=== PATIENT | female | born 1980 | race Caucasian/White ===

== ENCOUNTER → 2016-10-03 | Outpatient (CLI) | payer BC ==
[2016-10-03 08:47] LABS: Blood Urea Nitrogen 11 mg/dL (7-17); Non-African American GFR(MDRD) >60 (>60 ml/min/1.73 sqM)
--- NOTE | 2016-10-03 10:30 | CT ---
EXAMINATION TYPE: CT ChestAbdPelvis w con DATE OF EXAM: 10/03/2016 9:21 AM COMPARISON: NONE HISTORY: Staging of recent Cervical CA CT DLP: 1919.1 mGycm Automated exposure control for dose reduction was used. CONTRAST: CT scan of the chest, abdomen and pelvis is performed with Oral Contrast and with IV Contrast, patien t injected with 100 mL of Omnipaque 300. FINDINGS: LUNGS: The lungs are grossly clear, there is no concerning parenchymal mass or nodule identified. T here is no pleural effusion or pneumothorax seen. The tracheobronchial tree is patent. MEDIASTINUM: There are no greater than 1 cm hilar or mediastinal lymph nodes. No pericardial effusi on is seen. AORTA: No significant abnormality is seen. OTHER: No additional significant abnormality is seen. LIVER/GB: There is a large calcified gallstone within the gallbladder, smaller gallstone also present which is calcified, the liver shows low attenuation suggestive of fatty infiltration and is enlarged . There is no evident liver mass. PANCREAS: No significant abnormality is seen. SPLEEN: The spleen is enlarged measuring 14.7 cm. ADRENALS: No significant abnormality is seen. KIDNEYS: Small cortical cyst towards the upper pole measures only approximately 8 mm. No hydronephros is bilaterally, no ureteral calcification. REPRODUCTIVE ORGANS: Left ovarian cyst is suspected measuring 2.4 cm. BOWEL: No significant abnormality is seen. Appendix is normal. FREE AIR: No Free Air visible. ASCITES: None seen. RETROPERITONEAL ADENOPATHY: No retroperitoneal adenopathy is seen. LYMPH NODES: No greater than 1 cm abdominal or pelvic lymph nodes are appreciated. URINARY BLADDER: No significant abnormality is seen. PELVIC ADENOPATHY: None visualized. OSSEOUS STRUCTURES: Degenerative disc changes present at the lumbosacral spine junction. There is fa cet arthropathy. IMPRESSION: Left ovarian cystic lesion, follow-up as indicated. Fatty infiltration of liver, hepatome smita. Cholelithiasis.
== END | disposition home or self-care (01) ==
LOC: RADCTMAIN 07:38
PROVIDERS: ATTEND Obstetrics & Gynecology
DX: C76.0 Malignant neoplasm of head, face and neck (principal); K80.20 Calculus of gallbladder without cholecystitis without obstruction; N83.202 Unspecified ovarian cyst, left side; K76.0 Fatty (change of) liver, not elsewhere classified; R16.0 Hepatomegaly, not elsewhere classified
CPT/HCPCS: 82565; 84520; 71260; 74177; 36415; Q9967

== ENCOUNTER 2016-11-24 17:52 | Emergency (ER) | payer BC ==
[2016-11-24] MEDS ORDERED: SODIUM CHLORIDE 0.9% 1,000 ML IV ONE (19:14)
[2016-11-24] MEDS ORDERED: ONDANSETRON 4 MG/2 ML VIAL IVP STA (19:14)
[2016-11-24] MEDS ORDERED: KETOROLAC 30 MG/ML 1 ML VIAL IVP STA (19:14)
[2016-11-24 19:44] LABS: Basophils # (A) 0.1 k/uL (0-0.2); Basophils % (A) 1 %; CH 29.6; CHCM 34.6; Eosinophils # (A) 0.2 k/uL (0-0.7); Eosinophils % (A) 2 %; HCT 37.7 % (34.0-46.0); HDW 3.73; Luc % (Auto) 2; Lymphocytes # (A) 2.4 k/uL (1.0-4.8); Lymphocytes % (A) 26 %; MCH 29.7 pg (25.0-35.0); MCHC 34.4 g/dL (31.0-37.0); Mean Platelet Volume 7.1; Monocytes # (A) 0.6 k/uL (0-1.0); Monocytes % (A) 7 %; Neutrophils # (A) 5.8 k/uL (1.3-7.7); Neutrophils % (A) 62 %; Poikilocytosis Slight; RBC 4.36 m/uL (3.80-5.40); RDW 13.8 % (11.5-15.5); WBC 9.3 k/uL (3.8-10.6); WBC (Perox) 9.27
[2016-11-24 19:56] LABS: MCV 86.3 fL (80.0-100.0)
[2016-11-24 20:01] LABS: ALT 19 U/L (9-52); AST 12 U/L (14-36); Alkaline Phosphatase 70 U/L (38-126); Anion Gap 13 mmol/L; Blood Urea Nitrogen 17 mg/dL (7-17); Calcium 9.2 mg/dL (8.4-10.2); Carbon Dioxide 21 mmol/L (22-30); Chloride 106 mmol/L (98-107); Glucose 106 mg/dL (74-99); Non-African American GFR(MDRD) >60 (>60 ml/min/1.73 sqM); Potassium 4.7 mmol/L (3.5-5.1); Sodium 140 mmol/L (137-145); Total Bilirubin 0.6 mg/dL (0.2-1.3); Total Protein 7.3 g/dL (6.3-8.2)
[2016-11-24 20:06] LABS: Appearance,Urine Turbid (Clear); Bacteria,Urine Many /hpf; Bilirubin,Urine Negative (Negative); Glucose,Urine (UA) 4+ (Negative); Ketones,Urine Negative (Negative); Leukocyte Esterase,Urine Large (Negative); Nitrite,Urine Positive (Negative); PH, Urine 6.5 (5.0-8.0); Particle Count 5915; Protein,Urine 2+ (Negative); RBC,Urine >182 /hpf (0-5); Specific Gravity,Urine 1.019 (1.001-1.035); UA Billing (MACRO vs. MICRO) MICRO; Urobilinogen,Urine <2.0 mg/dL (<2.0); WBC,Urine >182 /hpf (0-5)
--- NOTE | 2016-11-24 22:14 | ED ---
General Adult HPI - General Chief complaint: Abdominal Pain Stated complaint: Post op pelvic pain Source: patient Mode of arrival: ambulatory Limitations: no limitations - History of Present Illness Initial comments: 36-year-old female presented for evaluation of dysuria and right flank pain. She states that earlier this month she had a radical hysterectomy due to stage I B1 cervical cancer and her surgery was performed by Dr. Odom at [facility] in [place]. During the surgery there was damage to the right ureter and a stent was placed. She had a cantu placed as well which was just removed last week. She only started having dysuria described as burning since friday. She denies any associated fevers, chills, nausea, vomiting, chest pain, shortness of breath. There is vaginal spotting but she states this is been intermittently present since the surgery. She denies any vaginal discharge or foul smell. - Related Data Home Medications Medication Instructions Recorded Confirmed Dapagliflozin Propanediol [Farxiga] 10 mg PO DAILY 11/24/16 11/24/16 Glimepiride [Amaryl] 2 mg PO DAILY 11/24/16 11/24/16 Ibuprofen [Motrin] 800 mg PO BID PRN 11/24/16 11/24/16 Lisinopril [Prinivil] 5 mg PO DAILY 11/24/16 11/24/16 Tamsulosin [Flomax] 0.4 mg PO DAILY 11/24/16 11/24/16 sitaGLIPtin PHOS/metFORMIN HCL 1 tab PO DAILY 11/24/16 11/24/16 [Janumet Xr 100-1,000 mg Tablet] Previous Rx's Medication Instructions Recorded HYDROcodone/APAP 5-325MG [[place] 1 - 2 tab PO Q6HR PRN #14 tab 11/24/16 5-325] Phenazopyridine HCl [Pyridium] 200 mg PO TID #6 tablet 11/24/16 Sulfamethox-Tmp 800-160Mg [Bactrim 1 tab PO Q12HR #14 tab 11/24/16 DS 800-160 mg] Allergies Allergy/AdvReac Type Severity Reaction Status Date / Time codeine AdvReac Nausea & Verified 11/24/16 19:18 Vomiting Review of Systems ROS Statement: Those systems with pertinent positive or pertinent negative responses have been documented in the HPI. ROS Other: All systems not noted in ROS Statement are negative. Constitutional: Denies: fever, chills, weakness Eyes: Denies: eye pain, eye discharge ENT: Denies: ear pain, throat pain Respiratory: Denies: cough, dyspnea Cardiovascular: Denies: chest pain, palpitations, dyspnea on exertion, orthopnea Endocrine: Denies: fatigue, polydipsia, polyuria Gastrointestinal: Reports: abdominal pain. Denies: nausea, vomiting, diarrhea, constipation Genitourinary: Reports: urgency, dysuria, frequency. Denies: abnormal menses, dyspareunia Musculoskeletal: Denies: back pain, arthralgia, myalgia Skin: Denies: rash, lesions Neurological: Denies: headache, weakness Psychiatric: Denies: anxiety, depression Hematological/Lymphatic: Denies: easy bleeding, easy bruising Past Medical History Past Medical History: Diabetes Mellitus, Hypertension History of Any Multi-Drug Resistant Organisms: None Reported Past Surgical History: Section, Hysterectomy Additional Past Surgical History / Comment(s): leep procedure Past Psychological History: No Psychological Hx Reported Smoking Status: Never smoker Past Alcohol Use History: Occasional Past Drug Use History: None Reported General Exam Limitations: no limitations General appearance: alert, in no apparent distress Head exam: Present: atraumatic, normocephalic, normal inspection Eye exam: Present: normal appearance, PERRL, EOMI. Absent: scleral icterus, conjunctival injection, periorbital swelling ENT exam: Present: normal exam, mucous membranes moist Neck exam: Present: normal inspection. Absent: tenderness, meningismus, lymphadenopathy Respiratory exam: Present: normal lung sounds bilaterally. Absent: respiratory distress, wheezes, rales, rhonchi, stridor Cardiovascular Exam: Present: normal rhythm, tachycardia. Absent: irregular rhythm GI/Abdominal exam: Present: soft, tenderness (Over suprapubic area), normal bowel sounds. Absent: distended, guarding, rebound, rigid Rectal exam: Present: deferred Extremities exam: Present: normal inspection, full ROM, normal capillary refill. Absent: tenderness, pedal edema, joint swelling, calf tenderness Back exam: Present: normal inspection Neurological exam: Present: alert, oriented X3, CN II-XII intact. Absent: altered Psychiatric exam: Present: normal affect, normal mood Skin exam: Present: warm, dry, intact, normal color. Absent: rash Course Vital Signs 03/11/24/16 11/24/16 18:07 20:49 22:25 Temperature 97.8 F 98.2 F 98.6 F Pulse Rate 110 H 93 90 Respiratory 20 20 16 Rate Blood Pressure 180/98 122/66 155/90 O2 Sat by Pulse 100 100 97 Oximetry EKG Findings - EKG Comments: EKG Findings:: Normal sinus rhythm with a ventricular rate of 74, MIKEL 148, QRS 84, QT/QTC 396/439. Medical Decision Making - Medical Decision Making 36-year-old female presented for evaluation of dysuria for the last 2 and half days. She recently had a radical hysterectomy for cervical cancer at [facility] by Dr. Odom. During surgery there was damage to the right ureter and a stent was placed as well as a Cantu catheter. She had a catheter removed last week. Given her symptom onset this is likely due to the repeated instrumentation in that general area as well as the increased potential for introduction of bacteria to her system. Concern for a UTI versus pyelonephritis with a kidney stone being much lower on the differential. Labs revealed a marketed urinary tract infection. Otherwise there were no other significant abnormalities to her labs including a CBC within normal limits. She did present tachycardic she is afebrile. Dr. Odom was contacted and updated on the status of this patient. He agreed with plan to provide a dose of antibiotic here in the emergency department and discharged with a seven- day course of antibiotics to cover both UTI and pyelonephritis. The patient was informed of these recommendations and results and agreed with plan to discharge. She was advised to make an appointment with Dr. Odom for sometime this week but to return to this facility if her symptoms should worsen or persist. She acknowledged an understanding of this information and agreed with this plan of care. - Lab Data Result diagrams: 11/24/16 19:31 11/24/16 19:31 Lab Results 11/24/16 11/24/16 11/24/16 Range/Units 19:31 19:31 19:31 WBC 9.3 (3.8-10.6) k/uL RBC 4.36 (3.80-5.40) m/uL Hgb 13.0 (11.4-16.0) gm/dL Hct 37.7 (34.0-46.0) % MCV 86.3 D (80.0-100.0) fL MCH 29.7 (25.0-35.0) pg MCHC 34.4 (31.0-37.0) g/dL RDW 13.8 (11.5-15.5) % Plt Count 486 H (150-450) k/uL Neutrophils % 62 % Lymphocytes % 26 % Monocytes % 7 % Eosinophils % 2 % Basophils % 1 % Neutrophils # 5.8 (1.3-7.7) k/uL Lymphocytes # 2.4 (1.0-4.8) k/uL Monocytes # 0.6 (0-1.0) k/uL Eosinophils # 0.2 (0-0.7) k/uL Basophils # 0.1 (0-0.2) k/uL Poikilocytosis Slight Sodium 140 (137-145) mmol/L Potassium 4.7 (3.5-5.1) mmol/L Chloride 106 (98-107) mmol/L Carbon Dioxide 21 L (22-30) mmol/L Anion Gap 13 mmol/L BUN 17 (7-17) mg/dL Creatinine 0.60 (0.52-1.04) mg/dL Est GFR (MDRD) Af Amer >60 (>60 ml/min/1.73 sqM) Est GFR (MDRD) Non-Af >60 (>60 ml/min/1.73 sqM) Glucose 106 H (74-99) mg/dL Plasma Lactic Acid Kartik 1.4 (0.7-2.0) mmol/L Calcium 9.2 (8.4-10.2) mg/dL Total Bilirubin 0.6 (0.2-1.3) mg/dL AST 12 L (14-36) U/L ALT 19 (9-52) U/L Alkaline Phosphatase 70 (38-126) U/L Total Protein 7.3 (6.3-8.2) g/dL Albumin 4.0 (3.5-5.0) g/dL Lipase 209 (23-300) U/L Urine Color Urine Appearance (Clear) Urine pH (5.0-8.0) Ur Specific [place] (1.001-1.035) Urine Protein (Negative) Urine Glucose (UA) (Negative) Urine Ketones (Negative) Urine Blood (Negative) Urine Nitrite (Negative) Urine Bilirubin (Negative) Urine Urobilinogen (<2.0) mg/dL Ur Leukocyte Esterase (Negative) Urine RBC (0-5) /hpf Urine WBC (0-5) /hpf Urine WBC Clumps (None) /hpf Urine Bacteria (None) /hpf 11/24/16 Range/Units 19:31 WBC (3.8-10.6) k/uL RBC (3.80-5.40) m/uL Hgb (11.4-16.0) gm/dL Hct (34.0-46.0) % MCV (80.0-100.0) fL MCH (25.0-35.0) pg MCHC (31.0-37.0) g/dL RDW (11.5-15.5) % Plt Count (150-450) k/uL Neutrophils % % Lymphocytes % % Monocytes % % Eosinophils % % Basophils % % Neutrophils # (1.3-7.7) k/uL Lymphocytes # (1.0-4.8) k/uL Monocytes # (0-1.0) k/uL Eosinophils # (0-0.7) k/uL Basophils # (0-0.2) k/uL Poikilocytosis Sodium (137-145) mmol/L Potassium (3.5-5.1) mmol/L Chloride (98-107) mmol/L Carbon Dioxide (22-30) mmol/L Anion Gap mmol/L BUN (7-17) mg/dL Creatinine (0.52-1.04) mg/dL Est GFR (MDRD) Af Amer (>60 ml/min/1.73 sqM) Est GFR (MDRD) Non-Af (>60 ml/min/1.73 sqM) Glucose (74-99) mg/dL Plasma Lactic Acid Kartik (0.7-2.0) mmol/L Calcium (8.4-10.2) mg/dL Total Bilirubin (0.2-1.3) mg/dL AST (14-36) U/L ALT (9-52) U/L Alkaline Phosphatase (38-126) U/L Total Protein (6.3-8.2) g/dL Albumin (3.5-5.0) g/dL Lipase (23-300) U/L Urine Color Yellow Urine Appearance Turbid H (Clear) Urine pH 6.5 (5.0-8.0) Ur Specific [place] 1.019 (1.001-1.035) Urine Protein 2+ H (Negative) Urine Glucose (UA) 4+ H (Negative) Urine Ketones Negative (Negative) Urine Blood Moderate H (Negative) Urine Nitrite Positive H (Negative) Urine Bilirubin Negative (Negative) Urine Urobilinogen <2.0 (<2.0) mg/dL Ur Leukocyte Esterase Large H (Negative) Urine RBC >182 H (0-5) /hpf Urine WBC >182 H (0-5) /hpf Urine WBC Clumps Many H (None) /hpf Urine Bacteria Many H (None) /hpf Disposition Clinical Impression: UTI (urinary tract infection) Disposition: HOME SELF-CARE Condition: Stable Instructions: Urinary Tract Infection in Women (ED), Dysuria (ED) Additional Instructions: Please use medication as discussed. Please follow up with family doctor if symptoms have not improved over the next two days. Please return to the emergency room if your symptoms increase or worsen or for any other concerns. Prescriptions: HYDROcodone/APAP 5-325MG [[place] 5-325] 1 - 2 tab PO Q6HR PRN #14 tab PRN Reason: Analgesia Phenazopyridine HCl [Pyridium] 200 mg PO TID #6 tablet Sulfamethox-Tmp 800-160Mg [Bactrim DS 800-160 mg] 1 tab PO Q12HR #14 tab Referrals: Tmai Tamez DO [Primary Care Provider] - 1-2 days Time of Disposition: 22:14
[2016-11-24 22:27] VITALS: BP 155/90; PULSE 90; RESP 16; TEMP 98.6
== END 2016-11-24 22:26 | disposition home or self-care (01) ==
LOC: EC 17:52
DX: N39.0 Urinary tract infection, site not specified (principal); E11.9 Type 2 diabetes mellitus without complications; I10 Essential (primary) hypertension; R00.0 Tachycardia, unspecified; Z85.41 Personal history of malignant neoplasm of cervix uteri; Z90.710 Acquired absence of both cervix and uterus; Z88.5 Allergy status to narcotic agent; Z79.84 Long term (current) use of oral hypoglycemic drugs; Z79.899 Other long term (current) drug therapy
CPT/HCPCS: 99284 ×2; 96365 ×2; 96375 ×3; 96361 ×2; 36415; 93005; 80053; 83605; 83690; 85025; 81001; 87040; 87086; 87077; 87186; J2405; J0696; J1885

== ENCOUNTER 2017-01-27 08:58 | Emergency (ER) | payer BC ==
[2017-01-27 09:20] VITALS: RESP 18
--- NOTE | 2017-01-27 09:33 | ED ---
General Adult HPI - General Chief complaint: Urogenital Stated complaint: UTI Time Seen by Provider: 01/27/17 09:24 Source: patient, RN notes reviewed Mode of arrival: ambulatory Limitations: no limitations - History of Present Illness Initial comments: Patient 36-year-old female who presents emergency room today with a chief complaint of increased urinary frequency with dysuria over the last 4 days. Patient does admit that symptoms are consistent with urinary tract infection that she's had in the past. Patient states she's tried some [id number] medication with no relief and feels like things are getting worse. She denies any other complaints or symptoms at this time. Patient denies any recent fever, chills, shortness of breath, chest pain, back pain, abdominal pain, nausea or vomiting, numbness or tingling, constipation or diarrhea, headaches or visual changes, or any other complaints. - Related Data Home Medications Medication Instructions Recorded Confirmed Dapagliflozin Propanediol [Farxiga] 10 mg PO DAILY 11/24/16 01/27/17 Glimepiride [Amaryl] 2 mg PO DAILY 11/24/16 01/27/17 Lisinopril [Prinivil] 5 mg PO DAILY 11/24/16 01/27/17 sitaGLIPtin PHOS/metFORMIN HCL 1 tab PO DAILY 11/24/16 01/27/17 [Janumet Xr 100-1,000 mg Tablet] Cholecalciferol (Vitamin D3) 2,000 unit PO DAILY 01/27/17 01/27/17 [Vitamin D3] Fluticasone Nasal Rachel [Flonase 2 spr EA NOSTRIL DAILY 01/27/17 01/27/17 Nasal Rachel] L.acidoph,Paracasei, B.lactis 1 cap PO DAILY 01/27/17 01/27/17 [Probiotic] Previous Rx's Medication Instructions Recorded Ciprofloxacin HCl [Cipro] 500 mg PO Q12HR #20 day 01/27/17 Allergies Allergy/AdvReac Type Severity Reaction Status Date / Time codeine AdvReac Nausea & Verified 01/27/17 09:35 Vomiting Review of Systems ROS Statement: Those systems with pertinent positive or pertinent negative responses have been documented in the HPI. ROS Other: All systems not noted in ROS Statement are negative. Past Medical History Past Medical History: Diabetes Mellitus, Hypertension History of Any Multi-Drug Resistant Organisms: None Reported Past Surgical History: Section, Hysterectomy Additional Past Surgical History / Comment(s): leep procedure Past Psychological History: No Psychological Hx Reported Smoking Status: Never smoker Past Alcohol Use History: Occasional Past Drug Use History: None Reported General Exam - General Exam Comments Initial Comments: General: The patient is awake and alert, in no distress, and does not appear acutely ill. Eye: Pupils are equal, round and reactive to light, extra-ocular movements are intact. No nystagmus. There is normal conjunctiva bilaterally. No signs of icterus. Ears, nose, mouth and throat: There are moist mucous membranes and no oral lesions. Neck: The neck is supple, there is no tenderness or JVD. Cardiovascular: There is a regular rate and rhythm. No murmur, rub or gallop is appreciated. Respiratory: Lungs are clear to auscultation, respirations are non-labored, breath sounds are equal. No wheezes, stridor, rales, or rhonchi. Gastrointestinal: Soft, non-distended, non-tender abdomen without masses or organomegaly noted. There is no rebound or guarding present. No CVA tenderness. Bowel sounds are unremarkable. Musculoskeletal: Normal ROM, no tenderness. Strength 5/5. Sensation intact. Pulses equal bilaterally 2+. Neurological: A&O x 3. CN II-XII intact, There are no obvious motor or sensory deficits. Coordination appears grossly intact. Speech is normal. Skin: Skin is warm and dry and no rashes or lesions are noted. Psychiatric: Cooperative, appropriate mood & affect, normal judgment. Limitations: no limitations Course Vital Signs 01/27/17 09:18 Temperature 97.9 F Pulse Rate 78 Respiratory 18 Rate Blood Pressure 133/76 O2 Sat by Pulse 97 Oximetry Medical Decision Making - Medical Decision Making Patient's urinalysis review does show evidence for urinary tract infection. Results discussed with the patient. Given dose of Rocephin here in emergency room. Patient will be continued on antibiotics at home and advised to have close follow-up the family doctor over the next 2 days for repeat urinalysis. Advised return here to emergency room if any symptoms increase or worsen or for any other concerns. Patient states understanding and is in agreement. - Lab Data Lab Results 01/27/17 01/27/17 Range/Units 09:10 09:10 Urine Color Dark Yellow Urine Appearance Cloudy H (Clear) Urine pH 5.5 (5.0-8.0) Ur Specific [place] 1.023 (1.001-1.035) Urine Protein Trace H (Negative) Urine Glucose (UA) 4+ H (Negative) Urine Ketones Negative (Negative) Urine Blood Trace H (Negative) Urine Nitrite Negative (Negative) Urine Bilirubin Negative (Negative) Urine Urobilinogen <2.0 (<2.0) mg/dL Ur Leukocyte Esterase Large H (Negative) Urine RBC 19 H (0-5) /hpf Urine WBC 148 H (0-5) /hpf Ur Squamous Epith Cells 2 (0-4) /hpf Urine HCG, Qual Not Detected (Not Detectd) Disposition Clinical Impression: UTI (urinary tract infection) Disposition: HOME SELF-CARE Condition: Good Instructions: Urinary Tract Infection in Women (ED) Additional Instructions: Please use medication as discussed. Please follow-up with family doctor in the next 2 days of symptoms have not improved. Please return to emergency room if the symptoms increase or worsen or for any other concerns. Prescriptions: Ciprofloxacin HCl [Cipro] 500 mg PO Q12HR #20 day Referrals: Tami Tamez DO [Primary Care Provider] - 1-2 days Time of Disposition: 09:52
[2017-01-27 09:46] LABS: Appearance,Urine Cloudy (Clear); Bilirubin,Urine Negative (Negative); Glucose,Urine (UA) 4+ (Negative); Ketones,Urine Negative (Negative); Leukocyte Esterase,Urine Large (Negative); Nitrite,Urine Negative (Negative); PH, Urine 5.5 (5.0-8.0); Particle Count 4857; Protein,Urine Trace (Negative); RBC,Urine 19 /hpf (0-5); Specific Gravity,Urine 1.023 (1.001-1.035); Squamous Epithelial Cell,Urine 2 /hpf (0-4); UA Billing (MACRO vs. MICRO) MICRO; Urobilinogen,Urine <2.0 mg/dL (<2.0); WBC,Urine 148 /hpf (0-5)
[2017-01-27] MEDS ORDERED: cefTRIAXone 1,000 MG VIAL (IM USE) IM STA (09:57)
[2017-01-27 10:35] VITALS: BP 134/79; PULSE 75; TEMP 97.7
== END 2017-01-27 10:35 | disposition home or self-care (01) ==
LOC: EC 08:58
DX: N39.0 Urinary tract infection, site not specified (principal); E11.9 Type 2 diabetes mellitus without complications; I10 Essential (primary) hypertension; Z79.84 Long term (current) use of oral hypoglycemic drugs; Z79.899 Other long term (current) drug therapy; Z79.51 Long term (current) use of inhaled steroids; Z88.5 Allergy status to narcotic agent; Z90.710 Acquired absence of both cervix and uterus
CPT/HCPCS: 81001; 81025; 87086; 99283; 96372; J0696; 87077; 87186

== ENCOUNTER 2017-07-25 01:22 | Emergency (ER) | payer BC ==
[2017-07-25] MEDS ORDERED: HYDROmorphone 1 MG/ML 1 ML SYRINGE IVP STA (01:48)
[2017-07-25] MEDS ORDERED: SODIUM CHLORIDE 0.9% 2,000 ML IV STA (01:48)
[2017-07-25] MEDS ORDERED: ONDANSETRON 4 MG/2 ML VIAL IVP STA (01:48)
[2017-07-25] MEDS ORDERED: HYDROmorphone 2 MG/ML 1 ML SYRINGE IVP STA (01:54)
[2017-07-25 02:48] VITALS: RESP 18
[2017-07-25 02:48] LABS: Basophils % (A) 0 %; CH 31.5; CHCM 34.6; Eosinophils # (A) 0.1 k/uL (0-0.7); Eosinophils % (A) 1 %; HCT 44.9 % (34.0-46.0); HDW 2.84; HGB 14.9 gm/dL (11.4-16.0); Luc # (Auto) 0.06; Luc % (Auto) 1; Lymphocytes # (A) 1.5 k/uL (1.0-4.8); Lymphocytes % (A) 20 %; MCH 30.5 pg (25.0-35.0); MCHC 33.3 g/dL (31.0-37.0); MCV 91.8 fL (80.0-100.0); Mean Platelet Volume 6.7; Monocytes # (A) 0.4 k/uL (0-1.0); Monocytes % (A) 5 %; Neutrophils # (A) 5.4 k/uL (1.3-7.7); Neutrophils % (A) 73 %; RBC 4.89 m/uL (3.80-5.40); WBC 7.3 k/uL (3.8-10.6); WBC (Perox) 7.45
[2017-07-25 02:49] LABS: Appearance,Urine Clear (Clear); Bilirubin,Urine Negative (Negative); Glucose,Urine (UA) 3+ (Negative); Ketones,Urine Negative (Negative); Leukocyte Esterase,Urine Negative (Negative); Nitrite,Urine Negative (Negative); Protein,Urine Negative (Negative); Specific Gravity,Urine 1.019 (1.001-1.035); UA Billing (MACRO vs. MICRO) CHEM; Urobilinogen,Urine <2.0 mg/dL (<2.0)
[2017-07-25 02:59] LABS: ALT 33 U/L (9-52); AST 16 U/L (14-36); Alkaline Phosphatase 71 U/L (38-126); Amylase 69 U/L (30-110); Anion Gap 12 mmol/L; Blood Urea Nitrogen 13 mg/dL (7-17); Calcium 9.9 mg/dL (8.4-10.2); Carbon Dioxide 22 mmol/L (22-30); Chloride 104 mmol/L (98-107); Glucose 245 mg/dL (74-99); Non-African American GFR(MDRD) >60 (>60 ml/min/1.73 sqM); Potassium 4.4 mmol/L (3.5-5.1); Sodium 138 mmol/L (137-145); Total Bilirubin 0.9 mg/dL (0.2-1.3)
--- NOTE | 2017-07-25 03:00 | ED ---
Abdominal Pain HPI - General Chief Complaint: Abdominal Pain Stated Complaint: Rt Flank Pain Time Seen by Provider: 07/25/17 01:43 Source: patient, RN notes reviewed, old records reviewed Mode of arrival: ambulatory Limitations: no limitations - History of Present Illness Initial Comments: Patient is a 37 year old female with 3 hours of RUQ and R flank pain after eating dinner. Pt has known gallbladder sludge and is scheduled to have cholecystectomy on 08/08. She discovered this after MRI to monitor for her Cervical cancer, diagnosed in October 2016. Patient had hysterectomy. - Related Data Home Medications Medication Instructions Recorded Confirmed Dapagliflozin Propanediol [Farxiga] 10 mg PO DAILY 11/24/16 07/25/17 Glimepiride [Amaryl] 2 mg PO DAILY 11/24/16 07/25/17 Lisinopril [Prinivil] 5 mg PO DAILY 11/24/16 07/25/17 Cholecalciferol (Vitamin D3) 2,000 unit PO DAILY 01/27/17 07/25/17 [Vitamin D3] Fluticasone Nasal [place] [Flonase 2 spr EA NOSTRIL DAILY 01/27/17 07/25/17 Nasal [place]] L.acidoph,Paracasei, B.lactis 1 cap PO DAILY 01/27/17 07/25/17 [Probiotic] Liraglutide [Victoza 2-Tyrone] 1.8 mg SQ DAILY 07/25/17 07/25/17 Previous Rx's Medication Instructions Recorded HYDROcodone/APAP 5-325MG [[place] 1 tab PO Q6HR PRN #10 tab 07/25/17 5-325] Ondansetron Odt [Zofran Odt] 4 mg PO Q8HR PRN #12 tab 07/25/17 Allergies Allergy/AdvReac Type Severity Reaction Status Date / Time codeine AdvReac Nausea & Verified 01/27/17 09:35 Vomiting dapagliflozin [From Farxiga] AdvReac Unknown Verified 07/25/17 01:35 Review of Systems ROS Statement: Those systems with pertinent positive or pertinent negative responses have been documented in the HPI. ROS Other: All systems not noted in ROS Statement are negative. Past Medical History Past Medical History: Diabetes Mellitus, Hypertension History of Any Multi-Drug Resistant Organisms: None Reported Past Surgical History: Section, Hysterectomy Additional Past Surgical History / Comment(s): leep procedure Past Psychological History: No Psychological Hx Reported Smoking Status: Never smoker Past Alcohol Use History: Rare Past Drug Use History: None Reported General Exam - General Exam Comments Initial Comments: 29-year-old female. Patient appears in discomfort. Limitations: no limitations General appearance: alert, in no apparent distress Head exam: Present: atraumatic, normocephalic, normal inspection Eye exam: Present: normal appearance, PERRL, EOMI. Absent: scleral icterus, conjunctival injection, periorbital swelling ENT exam: Present: normal exam, mucous membranes moist Neck exam: Present: normal inspection. Absent: tenderness, meningismus, lymphadenopathy Respiratory exam: Present: normal lung sounds bilaterally. Absent: respiratory distress, wheezes, rales, rhonchi, stridor Cardiovascular Exam: Present: regular rate, normal rhythm, normal heart sounds. Absent: systolic murmur, diastolic murmur, rubs, gallop, clicks GI/Abdominal exam: Present: soft, tenderness (RUQ tenderness), normal bowel sounds. Absent: distended, guarding, rebound, rigid Extremities exam: Present: normal inspection, full ROM, normal capillary refill. Absent: tenderness, pedal edema, joint swelling, calf tenderness Back exam: Present: normal inspection, CVA tenderness (R) Neurological exam: Present: alert, oriented X3, CN II-XII intact Psychiatric exam: Present: normal affect, normal mood Skin exam: Present: warm, dry, intact, normal color. Absent: rash Course Vital Signs 07/25/17 07/25/17 07/25/17 01:31 02:47 04:07 Temperature 97.7 F 98.2 F Pulse Rate 103 H 96 84 Respiratory 20 18 18 Rate Blood Pressure 172/105 146/78 142/73 O2 Sat by Pulse 100 98 97 Oximetry Medical Decision Making - Medical Decision Making Hermilo is 37 year old female with 3 hours of RUQ pain after eating thanksgiving dinner. She has known gallbladder stones and sludge after an MRI. She was to have elective cholecystectomy on 08/08. She Reports that the pain has not stopped after pepcid. At this time labs obtained, patient given IV pain medication. Minimal RUQ tenderness. Patient labs were reveiewed. Normal WBC, normal bilirubin and normal liver enzymes. Patient does have mildly elevated lipase 443. She is a diabetic. Discussed that patient needs RUQ US, and discussed that she needs to complete this in the morning. Discussed very close return parameters including worsening pain, fever, or any other symptoms. Patient will follow up with PCP and surgeon for possible earlier cholecystectomy. Patient agrees totreatment plan and will comply. - Lab Data Result diagrams: 07/25/17 02:30 07/25/17 02:30 Lab Results 07/25/17 07/25/17 07/25/17 Range/Units 02:30 02:30 02:30 WBC 7.3 (3.8-10.6) k/uL RBC 4.89 (3.80-5.40) m/uL Hgb 14.9 (11.4-16.0) gm/dL Hct 44.9 (34.0-46.0) % MCV 91.8 (80.0-100.0) fL MCH 30.5 (25.0-35.0) pg MCHC 33.3 (31.0-37.0) g/dL RDW 15.0 (11.5-15.5) % Plt Count 330 (150-450) k/uL Neutrophils % 73 % Lymphocytes % 20 % Monocytes % 5 % Eosinophils % 1 % Basophils % 0 % Neutrophils # 5.4 (1.3-7.7) k/uL Lymphocytes # 1.5 (1.0-4.8) k/uL Monocytes # 0.4 (0-1.0) k/uL Eosinophils # 0.1 (0-0.7) k/uL Basophils # 0.0 (0-0.2) k/uL Sodium 138 (137-145) mmol/L Potassium 4.4 (3.5-5.1) mmol/L Chloride 104 (98-107) mmol/L Carbon Dioxide 22 (22-30) mmol/L Anion Gap 12 mmol/L BUN 13 (7-17) mg/dL Creatinine 0.70 (0.52-1.04) mg/dL Est GFR (MDRD) Af Amer >60 (>60 ml/min/1.73 sqM) Est GFR (MDRD) Non-Af >60 (>60 ml/min/1.73 sqM) Glucose 245 H (74-99) mg/dL Lactic Ac Sepsis Rflx Plasma Lactic Acid Kartik 2.1 H* (0.7-2.0) mmol/L Calcium 9.9 (8.4-10.2) mg/dL Total Bilirubin 0.9 (0.2-1.3) mg/dL AST 16 (14-36) U/L ALT 33 (9-52) U/L Alkaline Phosphatase 71 (38-126) U/L Total Protein 8.0 (6.3-8.2) g/dL Albumin 4.5 (3.5-5.0) g/dL Amylase 69 (30-110) U/L Lipase 443 H (23-300) U/L Urine Color Urine Appearance (Clear) Urine pH (5.0-8.0) Ur Specific [place] (1.001-1.035) Urine Protein (Negative) Urine Glucose (UA) (Negative) Urine Ketones (Negative) Urine Blood (Negative) Urine Nitrite (Negative) Urine Bilirubin (Negative) Urine Urobilinogen (<2.0) mg/dL Ur Leukocyte Esterase (Negative) 07/25/17 07/25/17 Range/Units 02:30 03:05 WBC (3.8-10.6) k/uL RBC (3.80-5.40) m/uL Hgb (11.4-16.0) gm/dL Hct (34.0-46.0) % MCV (80.0-100.0) fL MCH (25.0-35.0) pg MCHC (31.0-37.0) g/dL RDW (11.5-15.5) % Plt Count (150-450) k/uL Neutrophils % % Lymphocytes % % Monocytes % % Eosinophils % % Basophils % % Neutrophils # (1.3-7.7) k/uL Lymphocytes # (1.0-4.8) k/uL Monocytes # (0-1.0) k/uL Eosinophils # (0-0.7) k/uL Basophils # (0-0.2) k/uL Sodium (137-145) mmol/L Potassium (3.5-5.1) mmol/L Chloride (98-107) mmol/L Carbon Dioxide (22-30) mmol/L Anion Gap mmol/L BUN (7-17) mg/dL Creatinine (0.52-1.04) mg/dL Est GFR (MDRD) Af Amer (>60 ml/min/1.73 sqM) Est GFR (MDRD) Non-Af (>60 ml/min/1.73 sqM) Glucose (74-99) mg/dL Lactic Ac Sepsis Rflx Y Plasma Lactic Acid Kartik (0.7-2.0) mmol/L Calcium (8.4-10.2) mg/dL Total Bilirubin (0.2-1.3) mg/dL AST (14-36) U/L ALT (9-52) U/L Alkaline Phosphatase (38-126) U/L Total Protein (6.3-8.2) g/dL Albumin (3.5-5.0) g/dL Amylase (30-110) U/L Lipase (23-300) U/L Urine Color Yellow Urine Appearance Clear (Clear) Urine pH 6.0 (5.0-8.0) Ur Specific [place] 1.019 (1.001-1.035) Urine Protein Negative (Negative) Urine Glucose (UA) 3+ H (Negative) Urine Ketones Negative (Negative) Urine Blood Negative (Negative) Urine Nitrite Negative (Negative) Urine Bilirubin Negative (Negative) Urine Urobilinogen <2.0 (<2.0) mg/dL Ur Leukocyte Esterase Negative (Negative) Disposition Clinical Impression: Biliary colic Disposition: HOME SELF-CARE Condition: Good Instructions: Biliary Colic (ED), Gallstones (ED) Additional Instructions: Patient is to follow-up with primary care provider, and complete her ultrasound tomorrow morning. Recommended to return to emergency department if there is any severe worsening pain, fevers, or any other symptoms that are concerning. Take the medicine as prescribed. Prescriptions: HYDROcodone/APAP 5-325MG [[place] 5-325] 1 tab PO Q6HR PRN #10 tab PRN Reason: Pain Ondansetron Odt [Zofran Odt] 4 mg PO Q8HR PRN #12 tab PRN Reason: Nausea Referrals: Tami Tamez DO [Primary Care Provider] - 1-2 days Time of Disposition: 03:48
[2017-07-25 04:08] VITALS: BP 142/73; PULSE 84; TEMP 98.2
== END 2017-07-25 04:07 | disposition home or self-care (01) ==
LOC: EC 01:22
DX: K80.50 Calculus of bile duct without cholangitis or cholecystitis without obstruction (principal); E11.9 Type 2 diabetes mellitus without complications; I10 Essential (primary) hypertension; Z90.710 Acquired absence of both cervix and uterus; Z79.51 Long term (current) use of inhaled steroids; Z79.84 Long term (current) use of oral hypoglycemic drugs; Z79.899 Other long term (current) drug therapy; Z88.5 Allergy status to narcotic agent; Z88.8 Allergy status to other drugs, medicaments and biological substances
CPT/HCPCS: 36415; 80053; 82150; 83605; 83690; 85025; 81003; 87040; 99284; 96374; 96375; 96361; J1170; J2405

== ENCOUNTER → 2017-07-29 | Outpatient (CLI) | payer BC ==
--- NOTE | 2017-07-29 07:52 | US ---
EXAMINATION TYPE: US abdomen limited DATE OF EXAM: 07/29/2017 COMPARISON: NONE CLINICAL HISTORY: R10.11 RUQ ABD PAIN. Nausea, ruq pain cholecystectomy scheduled for 08/08/17 EXAM MEASUREMENTS: Liver Length: 18.4 cm Gallbladder Wall: 0.2 cm CBD: 0.5 cm Right Kidney: 9.1 x 4.7 x 5.1 cm patient in so much pain, I could barley use pressure to obtain imaging, large body habitus Pancreas: limited views appeared wnl Liver: difficult to penetrate, upper limits of normal for size Gallbladder: +SOREN sign, no wall thickening, no gutter fluid seen Evidence for sonographic Gonzalez's sign: yes CBD: wnl Right Kidney: wnl IMPRESSION: 1. Hepatic steatosis. 2. The gallbladder is full of gallstones with the posterior acoustic shadowing. No definite wall thic kening or pericholecystic fluid at this time. Correlate clinically.
== END | disposition home or self-care (01) ==
LOC: RADUSWWP 06:47
PROVIDERS: ATTEND Emergency Medicine
DX: K76.0 Fatty (change of) liver, not elsewhere classified (principal); K80.20 Calculus of gallbladder without cholecystitis without obstruction
CPT/HCPCS: 76705

== ENCOUNTER 2017-10-11 12:14 | Emergency (ER) | payer BC ==
[2017-10-11 12:51] VITALS: RESP 18
[2017-10-11] MEDS ORDERED: HYDROcodone/APAP 5-325MG 1 EACH TAB PO STA (12:59)
--- NOTE | 2017-10-11 13:13 | ED ---
Lower Extremity Injury HPI - General Chief Complaint: Extremity Injury, Lower Stated Complaint: Fall/Ankle Pain Time Seen by Provider: 10/11/17 12:52 Source: patient Mode of arrival: ambulatory Limitations: no limitations - History of Present Illness Initial Comments: 37-year-old female patient presents to the emergency department today for complaints of left ankle and foot pain. Patient states that last evening she stepped off a curb, and slipped in some slush. She states that she her ankle twisted backwards. She states that today it is more swollen and she is unable to bear weight on it without significant pain. She states that the pain is shooting from her ankle up to her leg. She states she also did land on her left knee, she states it is achy today but is not very painful. She denies any numbness or tingling to the left lower extremity. She denies hitting her head or losing consciousness during the fall. She denies any other injuries. Patient denies any headache, neck pain, back pain, chest pain, shortness of breath, dizziness, weakness, abdominal pain, nausea, vomiting, or difficulties with bowel movements or urination. - Related Data Home Medications Medication Instructions Recorded Confirmed Glimepiride [Amaryl] 4 mg PO DAILY 11/24/16 07/31/17 Lisinopril [Prinivil] 5 mg PO DAILY 11/24/16 07/31/17 Cholecalciferol (Vitamin D3) 5,000 unit PO DAILY 01/27/17 07/31/17 [Vitamin D3] Fluticasone Nasal [place] [Flonase 2 spr EA NOSTRIL DAILY PRN 01/27/17 07/31/17 Nasal [place]] L.acidoph,Paracasei, B.lactis 1 cap PO DAILY 01/27/17 07/31/17 [Probiotic] Liraglutide [Victoza 2-Tyrone] 1.8 mg SQ DAILY 07/25/17 07/31/17 Previous Rx's Medication Instructions Recorded HYDROcodone/APAP 5-325MG [[place] 1 tab PO Q6HR PRN #10 tab 07/25/17 5-325] Ondansetron Odt [Zofran Odt] 4 mg PO Q8HR PRN #12 tab 07/25/17 Docusate [Colace] 100 mg PO BID #20 capsule 12/01/17 HYDROcodone/APAP 7.5-325MG [[place] 1 each PO Q4H PRN #30 tab 08/01/17 7.5] Ibuprofen [Motrin] 600 mg PO Q8HR PRN #30 tab 10/11/17 Allergies Allergy/AdvReac Type Severity Reaction Status Date / Time codeine AdvReac Nausea & Verified 10/11/17 12:51 Vomiting dapagliflozin [From Farxiga] AdvReac Unknown Verified 10/11/17 12:51 Review of Systems ROS Statement: Those systems with pertinent positive or pertinent negative responses have been documented in the HPI. ROS Other: All systems not noted in ROS Statement are negative. Past Medical History Past Medical History: Cancer, Diabetes Mellitus, Hypertension Additional Past Medical History / Comment(s): hx "stage 1" cervical cancer History of Any Multi-Drug Resistant Organisms: None Reported Past Surgical History: Section, Cholecystectomy, Hysterectomy Additional Past Surgical History / Comment(s): leep procedure Past Anesthesia/Blood Transfusion Reactions: Motion Sickness Past Psychological History: No Psychological Hx Reported Smoking Status: Never smoker Past Alcohol Use History: Occasional Past Drug Use History: None Reported - Past Family History Mother Family Medical History: No Reported History General Exam Limitations: no limitations General appearance: alert, in no apparent distress, other (Is a well-developed, well-nourished adult female patient in no acute distress. Vital signs upon presentation are temperature 97.9F, pulse 87, respirations 18, blood pressure 140/87, pulse ox 98% on room air.) Eye exam: Present: normal appearance, PERRL, EOMI. Absent: scleral icterus, conjunctival injection, periorbital swelling ENT exam: Present: normal exam, normal oropharynx, mucous membranes moist Neck exam: Present: normal inspection. Absent: tenderness, meningismus, lymphadenopathy Respiratory exam: Present: normal lung sounds bilaterally. Absent: respiratory distress, wheezes, rales, rhonchi, stridor Cardiovascular Exam: Present: regular rate, normal rhythm, normal heart sounds. Absent: systolic murmur, diastolic murmur, rubs, gallop, clicks Extremities exam: Present: tenderness (Left ankle tenderness anterior and surrounding the left lateral malleolus. ), normal capillary refill, other ( Circumferential left ankle swelling. Pedal pulses are 2+ and equal bilaterally. Post tibial pulses are 2+ and equal bilaterally. Skin is pink, warm, and dry. Cap refills less than 3 seconds. Left anterior knee ecchymosis and mild soft tissue swelling. Full range of motion noted to the knee.). Absent: normal inspection, full ROM (Decreased range of motion of the left ankle due to increased pain with movement.), pedal edema, joint swelling, calf tenderness Back exam: Present: normal inspection Neurological exam: Present: alert, oriented X3, CN II-XII intact Psychiatric exam: Present: normal affect, normal mood Skin exam: Present: warm, dry, intact, normal color. Absent: rash Course Vital Signs 10/11/17 12:48 Temperature 97.9 F Pulse Rate 87 Respiratory 18 Rate Blood Pressure 140/87 O2 Sat by Pulse 98 Oximetry Medical Decision Making - Medical Decision Making 37-year-old female patient presented to the emergency department today for evaluation of left ankle and foot pain after a slip and fall yesterday. Physical examination reveals soft tissue swelling surrounding the ankle, anterior and left lateral malleolus tenderness. Neurovascular status is intact. X-rays are negative for any acute fracture. She is placed in an ankle stirrup splint. She is instructed to wear splint for comfort, use crutches as needed. She is instructed to take ibuprofen for pain control. She is instructed to rest, ice, elevate the foot and ankle. She is instructed to have repeat x-rays performed in 7-10 days if her symptoms persist. She is instructed to return here immediately for any new, worsening, or concerning symptoms. She verbalizes understanding and agrees with this plan. - Radiology Data Radiology results: report reviewed, image reviewed 3 views of the left foot are obtained, no fracture dislocation is seen. There are both plantar and Achilles calcaneal spurs. Impression by Dr. Pickens shows no acute osseous lesion. Calcaneal spurs. 3 views of the left ankle shows soft tissue swelling about the ankle. No definite fracture, dislocation or ankle joint effusion. There are both plantar and Achilles calcaneal spurs. Impression by Dr. Pickens shows no acute osseous lesion. Disposition Clinical Impression: Left ankle sprain Disposition: HOME SELF-CARE Condition: Good Instructions: Ankle Sprain (ED) Additional Instructions: Rest, ice, and elevate the left lower extremity. Ice 20 minutes at a time at least 4 times daily. Use splint for comfort. Use crutches as necessary. Follow-up with orthopedics for symptoms do not improve over the next 7-10 days. Return here immediately for any new, worsening, or concerning symptoms. Prescriptions: Ibuprofen [Motrin] 600 mg PO Q8HR PRN #30 tab PRN Reason: Pain Referrals: Tami Tamez DO [Primary Care Provider] - 1-2 days Burt Dunne MD [STAFF PHYSICIAN] - 1-2 days Time of Disposition: 13:54
--- NOTE | 2017-10-11 13:49 | XR ---
EXAMINATION TYPE: XR foot complete LT , 3 VIEWS DATE OF EXAM ORDERED: 10/11/2017 HISTORY: Pain. COMPARISON: None. FINDINGS: No fracture or dislocation is seen. There are both plantar and Achilles calcaneal spurs. IMPRESSION: 1. NO ACUTE OSSEOUS LESION. 2. CALCANEAL SPURS.
--- NOTE | 2017-10-11 13:50 | XR ---
EXAMINATION TYPE: XR ankle complete LT , 3 VIEWS DATE OF EXAM ORDERED: 10/11/2017 HISTORY: Pain. COMPARISON: None. FINDINGS: There is soft tissue swelling about the ankle. No definite fracture, dislocation or ankle joint effusion is seen. There are both plantar and Achilles calcaneal spurs. IMPRESSION: NO ACUTE OSSEOUS LESION.
[2017-10-11 14:15] VITALS: BP 128/76; PULSE 80; TEMP 97.5
== END 2017-10-11 14:16 | disposition home or self-care (01) ==
LOC: EC 12:14
DX: S93.402A Sprain of unspecified ligament of left ankle, initial encounter (principal); M77.32 Calcaneal spur, left foot; I10 Essential (primary) hypertension; E11.9 Type 2 diabetes mellitus without complications; Z79.84 Long term (current) use of oral hypoglycemic drugs; Z79.899 Other long term (current) drug therapy; Z88.5 Allergy status to narcotic agent; Z88.8 Allergy status to other drugs, medicaments and biological substances; Z85.41 Personal history of malignant neoplasm of cervix uteri; Z90.710 Acquired absence of both cervix and uterus; W01.0XXA Fall on same level from slipping, tripping and stumbling without subsequent striking against object, initial encounter
CPT/HCPCS: 73610; 73630; 99283; 29515; L4350

== ENCOUNTER 2018-05-15 22:50 | Emergency (ER) | payer BC ==
--- NOTE | 2018-05-15 23:35 | ED ---
Lower Extremity Injury HPI - General Source: patient Mode of arrival: wheelchair Limitations: no limitations <Naa Shine - Last Filed: 05/16/18 02:36> <Cindy Espinosa - Last Filed: 05/18/18 19:02> - General Chief Complaint: Extremity Injury, Lower Stated Complaint: foot pain Time Seen by Provider: 05/15/18 23:17 - History of Present Illness Initial Comments: 38-year-old female patient presents to the emergency department today for evaluation of left foot pain and swelling. 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 Patient states that she heard a crack. Patient states she was able to ambulate on it after the injury however today when she woke she had extensive bruising and swelling to the foot. States that as the day has worn on today the pain has worsened. She denies any numbness or tingling to the foot. Denies any previous injury to the foot. Denies any ankle pain or limitations with range of motion to the ankle. She denies falling or hitting her head. Patient denies any headache, neck pain, back pain, chest pain, shortness of breath, dizziness, weakness, abdominal pain, nausea, vomiting, or difficulties with bowel movements or urination. (Naa Shine ) - Related Data Home Medications Medication Instructions Recorded Confirmed Glimepiride [Amaryl] 4 mg PO DAILY 11/24/16 05/15/18 Cholecalciferol (Vitamin D3) 5,000 unit PO DAILY 01/27/17 05/15/18 [Vitamin D3] Liraglutide [Victoza 2-Tyrone] 1.8 mg SQ DAILY 07/25/17 05/15/18 Cranberry Fruit Concentrate 450 mg PO DAILY 05/15/18 05/15/18 [Cranberry] Lisinopril [Zestril] 10 mg PO DAILY 05/15/18 05/15/18 Sertraline [Zoloft] 100 mg PO HS 05/15/18 05/15/18 metFORMIN HCL 1,000 mg PO HS 05/15/18 05/15/18 Previous Rx's Medication Instructions Recorded Hydrocodone/Acetaminophen [Gravity 1 tab PO Q6HR PRN #12 tab 05/16/18 5-325] Allergies Allergy/AdvReac Type Severity Reaction Status Date / Time codeine AdvReac Nausea & Verified 05/15/18 23:00 Vomiting dapagliflozin [From [facility]] AdvReac Unknown Verified 05/15/18 23:00 Review of Systems ROS Other: All systems not noted in ROS Statement are negative. <Naa Shine M - Last Filed: 05/16/18 02:36> ROS Other: All systems not noted in ROS Statement are negative. <Cindy Espinosa - Last Filed: 05/18/18 19:02> ROS Statement: Those systems with pertinent positive or pertinent negative responses have been documented in the HPI. Past Medical History Past Medical History: Cancer, Diabetes Mellitus, Hypertension Additional Past Medical History / Comment(s): hx "stage 1" cervical cancer History of Any Multi-Drug Resistant Organisms: None Reported Past Surgical History: Section, Cholecystectomy, Hysterectomy Additional Past Surgical History / Comment(s): leep procedure Past Anesthesia/Blood Transfusion Reactions: Motion Sickness Past Psychological History: No Psychological Hx Reported Smoking Status: Never smoker Past Alcohol Use History: Occasional Past Drug Use History: None Reported - Past Family History Mother Family Medical History: No Reported History <Naa Shine - Last Filed: 05/16/18 02:36> General Exam Limitations: no limitations General appearance: alert, in no apparent distress, other (This is a well- developed, well-nourished adult female patient in no acute distress. Vital signs upon presentation are temperature 98.0F, pulse 94, respirations 18, blood pressure 135/83, pulse ox 97% on room air.) Eye exam: Present: normal appearance, PERRL, EOMI. Absent: scleral icterus, conjunctival injection, periorbital swelling ENT exam: Present: normal exam, normal oropharynx, mucous membranes moist Respiratory exam: Present: normal lung sounds bilaterally. Absent: respiratory distress, wheezes, rales, rhonchi, stridor Cardiovascular Exam: Present: regular rate, normal rhythm, normal heart sounds. Absent: systolic murmur, diastolic murmur, rubs, gallop, clicks Extremities exam: Present: full ROM, tenderness (Tenderness over the dorsal aspect of the left foot), normal capillary refill, other (Ecchymosis and swelling noted to the dorsal aspect of the left foot. Otherwise skin is pink, warm, and dry. Cap refills less than 3 seconds. Pedal and posttibial pulses 2 + and equal bilaterally.). Absent: normal inspection, pedal edema, joint swelling, calf tenderness Neurological exam: Present: alert, oriented X3, CN II-XII intact Psychiatric exam: Present: normal affect, normal mood Skin exam: Present: warm, dry, intact, normal color. Absent: rash <Naa Shine - Last Filed: 05/16/18 02:36> Vital Signs 05/15/18 05/16/18 05/16/18 22:52 00:30 01:33 Temperature 98 F 98.6 F Pulse Rate 94 72 Respiratory 18 17 19 Rate Blood Pressure 135/83 132/98 O2 Sat by Pulse 97 97 Oximetry Procedures - Orthopedic Splinting/Casting Injury #1 Side: left Lower Extremity Injury Location: short leg, foot Lower Extremity Immobilizer: posterior splint (Bulky) <Naa Shine - Last Filed: 05/16/18 02:36> Medical Decision Making - Radiology Data Radiology results: report reviewed, image reviewed <Naa Shine - Last Filed: 05/16/18 02:36> <Cindy Espinosa - Last Filed: 05/18/18 19:02> - Medical Decision Making 38-year-old female patient presented to the emergency department today for evaluation of left foot pain and swelling. Physical examination did reveal swelling over the dorsal aspect of the foot with ecchymosis. Patient has tenderness over the fourth and fifth metatarsals. X-ray was obtained and did show a comminuted nondisplaced fracture of the fifth metatarsal. Patient was splinted. She is instructed to follow-up with orthopedics as soon as possible for further evaluation. She is instructed to remain nonweightbearing and use crutches. She'll be given prescription for pain management. Return parameters were discussed in detail. She verbalizes understanding and agrees with this plan. (Naa Shine) I was available for consultation in the emergency department. The history and physical exam were done by the midlevel provider. I was consulted for this patient's care. I reviewed the case with the midlevel provider and based on their presentation of the patient, I agree with the assessment, medical decision making and plan of care as documented. (Cindy Espinosa) - Radiology Data 3 views of the left foot is obtained. There is a comminuted displaced fracture of the mid and distal shaft of the fifth metatarsal. There is no significant displacement. Joint spaces appear normal. There are plantar and achilles calcaneal spurs. There is some soft tissue swelling at the forefoot. Impression by Dr. Rosas shows acute fracture of the fifth metatarsal. ( Naa Shine) Disposition Is patient prescribed a controlled substance at d/c from ED?: No Time of Disposition: 01:29 <Naa Shine - Last Filed: 05/16/18 02:36> <Cindy Espinosa - Last Filed: 05/18/18 19:02> Clinical Impression: Fracture of fifth metatarsal bone of left foot Disposition: HOME SELF-CARE Condition: Good Instructions: Foot Fracture in Adults (ED), Splint Care (ED) Additional Instructions: Rest, ice, elevate the left foot. Keep splint in place until follow up. Follow- up with orthopedics for recheck as soon as possible. Return here immediately for any new, worsening, or concerning symptoms. Prescriptions: Hydrocodone/Acetaminophen [Gravity 5-325] 1 tab PO Q6HR PRN #12 tab PRN Reason: Pain Referrals: Tami Tamez DO [Primary Care Provider] - 1-2 days Jomar Martins MD [Medical Doctor] - 1-2 days
[2018-05-16] MEDS ORDERED: HYDROcodone/APAP 5-325MG 1 EACH TAB PO STA (00:33)
--- NOTE | 2018-05-16 01:13 | XR ---
EXAMINATION TYPE: XR foot complete LT DATE OF EXAM: 05/16/2018 COMPARISON: 10/11/2017 HISTORY: Foot pain TECHNIQUE: 3 views. FINDINGS: There is a comminuted nondisplaced fracture of the mid and distal shaft of the fifth metatarsal. The re is no significant displacement. Joint spaces appear normal. There are plantar and Achilles calcane al spurs. There is some soft tissue swelling of the forefoot. IMPRESSION: Acute fracture of the fifth metatarsal.
[2018-05-16 03:15] VITALS: BP 132/98; PULSE 72; RESP 19; TEMP 98.6
== END 2018-05-16 01:33 | disposition home or self-care (01) ==
LOC: EC 22:50
DX: S92.355A Nondisplaced fracture of fifth metatarsal bone, left foot, initial encounter for closed fracture (principal); E11.9 Type 2 diabetes mellitus without complications; I10 Essential (primary) hypertension; Z85.41 Personal history of malignant neoplasm of cervix uteri; Z79.84 Long term (current) use of oral hypoglycemic drugs; Z79.899 Other long term (current) drug therapy; Z88.5 Allergy status to narcotic agent; Z88.8 Allergy status to other drugs, medicaments and biological substances; W10.8XXA Fall (on) (from) other stairs and steps, initial encounter
CPT/HCPCS: 29515; 99283

== ENCOUNTER → 2018-05-26 | Outpatient (CLI) | payer BC | END | disposition home or self-care (01) | LOC: LABWHC1 10:08 | PROVIDERS: ATTEND Orthopaedic Surgery | DX: E55.9 Vitamin D deficiency, unspecified (principal) | CPT/HCPCS: 36415; 82306 ==

== ENCOUNTER → 2020-05-31 | Outpatient (CLI) | payer OTHER ==
--- NOTE | 2020-05-31 14:27 | MM ---
Reason for exam: screening (asymptomatic). Baseline mammogram. History: Patient has history of other cancer at age 36. Took hormonal contraceptives for 10 years. Physical Findings: Nurse did not find any significant physical abnormalities on exam. MG Screening Mammo w CAD Bilateral CC, MLO, and XCCL view(s) were taken. The breast tissue is heterogeneously dense. This may lower the sensitivity of mammography. Benign appearing bilateral calcifications. These results were verbally communicated with the patient and result sheet given to the patient on 05/31/20. ASSESSMENT: Benign, BI-RAD 2 RECOMMENDATION: Routine screening mammogram of both breasts in 1 year.
== END | disposition home or self-care (01) ==
LOC: RADMAMWWP 13:18
PROVIDERS: ATTEND Family Medicine
DX: Z12.31 Encounter for screening mammogram for malignant neoplasm of breast (principal)
CPT/HCPCS: 77067

== ENCOUNTER → 2022-07-08 | Outpatient (CLI) | payer BC ==
--- NOTE | 2022-07-09 08:50 | MM ---
Reason for Exam: Screening (asymptomatic). Last mammogram was performed 2 year(s) and 2 month(s) ago. Patient History: Menarche at age 11. First Full-Term at age 20. Hysterectomy at age 36. Patient has history of breast feeding. Patient used Hormonal Contraceptives for 10 years. Risk Values: Michelle 5 year model risk: 0.6%. NCI Lifetime model risk: 8.8%. Prior Study Comparison: 05/31/2020 Bilateral Screening Mammogram, [facility]. Tissue Density: The breast tissue is heterogeneously dense. This may lower the sensitivity of mammography. Findings: Analyzed By CAD. Benign-appearing calcifications bilaterally. There is no suspicious group of microcalcifications or new suspicious mass in either breast. Overall Assessment: Benign, BI-RAD 2 Management: Screening Mammogram of both breasts in 1 year. A clinical breast exam by your physician is recommended on an annual basis and results should be correlated with mammographic findings. [facility] will attempt to contact patient to return for supplemental views and ultrasound if indicated. Electronically signed and approved by: Bolivar Huitron DO
== END | disposition home or self-care (01) ==
LOC: RADMAMWWP 13:41
PROVIDERS: ATTEND Family Medicine
DX: Z12.31 Encounter for screening mammogram for malignant neoplasm of breast (principal)
CPT/HCPCS: 77063; 77067

== ENCOUNTER 2023-07-22 12:23 | Emergency (ER) | payer BC ==
--- NOTE | 2023-07-22 12:58 | ED ---
General Adult HPI - General Source: patient, RN notes reviewed Mode of arrival: ambulatory Limitations: no limitations <Victor Manuel Cantu - Last Filed: 07/22/23 12:57> - General Source: patient, RN notes reviewed Mode of arrival: wheelchair Limitations: no limitations <Ky Cota - Last Filed: 07/22/23 15:51> - General Stated complaint: Dizziness Time Seen by Provider: 07/22/23 12:58 - History of Present Illness Initial comments: 43-year-old female presents emergency Department chief complaint of lightheadedness, dizziness. Patient states started yesterday. She states she felt like it was from her medication increased. Patient states that she did not take her new medication dose today she still had symptoms she states she feels very lightheaded feels that she can pass out in the room spins she feels tingly all over. (Victor Manuel Cantu) Patient is a pleasant 43-year-old female presenting to the emergency department with concerns for lightheadedness. Onset of symptoms was 2 days ago. Patient states she questioned if it was from her change in medication for diabetes. Blood sugar has remained stable. No confusion. No weakness. No history of similar symptoms previously. Patient has been eating and drinking normally. (Ky Cota) - Related Data Home Medications Medication Instructions Recorded Confirmed Glimepiride [Amaryl] 4 mg PO DAILY 11/24/16 05/15/18 Cholecalciferol (Vitamin D3) 5,000 unit PO DAILY 01/27/17 05/15/18 [Vitamin D3] Liraglutide [Victoza 2-Tyrone] 1.8 mg SQ DAILY 07/25/17 05/15/18 Cranberry Fruit Concentrate 450 mg PO DAILY 05/15/18 05/15/18 [Cranberry] Sertraline [Zoloft] 100 mg PO HS 05/15/18 05/15/18 lisinopriL [Zestril] 10 mg PO DAILY 05/15/18 05/15/18 metFORMIN HCL [Glucophage] 1,000 mg PO HS 05/15/18 05/15/18 Previous Rx's Medication Instructions Recorded Hydrocodone/Acetaminophen [Beverly 1 tab PO Q6HR PRN #12 tab 05/16/18 5-325] Magnesium Oxide [Mag-Ox] 400 mg PO BID #8 tablet 07/22/23 Allergies Allergy/AdvReac Type Severity Reaction Status Date / Time codeine AdvReac Nausea & Verified 07/22/23 12:56 Vomiting dapagliflozin [From [facility]] AdvReac Unknown Verified 07/22/23 12:56 Review of Systems ROS Other: All systems not noted in ROS Statement are negative. <Victor Manuel Cantu Froylan - Last Filed: 07/22/23 12:57> ROS Other: All systems not noted in ROS Statement are negative. Constitutional: Denies: fever Eyes: Denies: eye pain ENT: Denies: ear pain Respiratory: Denies: cough, dyspnea Cardiovascular: Denies: chest pain Endocrine: Denies: fatigue Musculoskeletal: Reports: as per HPI (Patient states her fibromyalgia is acting up.) Skin: Denies: rash Neurological: Denies: headache, weakness, confusion <Ky Cota - Last Filed: 07/22/23 15:51> ROS Statement: Those systems with pertinent positive or pertinent negative responses have been documented in the HPI. Past Medical History Past Medical History: Cancer, Diabetes Mellitus, Hypertension Additional Past Medical History / Comment(s): hx "stage 1" cervical cancer History of Any Multi-Drug Resistant Organisms: None Reported Past Surgical History: Section, Cholecystectomy, Hysterectomy Additional Past Surgical History / Comment(s): leep procedure Past Anesthesia/Blood Transfusion Reactions: Motion Sickness Past Psychological History: No Psychological Hx Reported Past Alcohol Use History: Occasional Past Drug Use History: None Reported - Past Family History Mother Family Medical History: No Reported History <Victor Manuel Cantu Froylan - Last Filed: 07/22/23 12:57> General Exam <Victor Manuel Cantu Froylan - Last Filed: 07/22/23 12:57> Limitations: no limitations General appearance: alert, in no apparent distress Head exam: Present: normocephalic Eye exam: Present: normal appearance, PERRL, EOMI. Absent: nystagmus ENT exam: Present: normal oropharynx Neck exam: Present: normal inspection Respiratory exam: Present: normal lung sounds bilaterally Cardiovascular Exam: Present: regular rate, normal rhythm GI/Abdominal exam: Present: soft. Absent: tenderness Extremities exam: Present: normal inspection. Absent: pedal edema, calf tenderness Neurological exam: Present: alert, oriented X3, CN II-XII intact. Absent: motor sensory deficit Expanded Neurological exam: Present: protecting the airway Speech: Present: fluid speech Cranial nerves: EOM's Intact: Normal Motor strength exam: RUE: 5, LUE: 5, RLE: 5, LLE: 5 Eye Response: (4) open spontaneously Motor Response: (6) obeys commands Verbal Response: (5) oriented Psychiatric exam: Present: normal affect, normal mood Skin exam: Present: normal color <Ky Cota - Last Filed: 07/22/23 15:51> - General Exam Comments Initial Comments: Visual Physical Exam Vital signs reviewed General: Well-appearing, nontoxic, no acute distress. Head: Normocephalic, atraumatic Eyes: PERRLA, EOMI ENT: Airway patent Chest: Nonlabored breathing Skin: No visual rash, normal skin tone Neuro: Alert and oriented 3 Musculoskeletal: No gross abnormalities (Victor Manuel Cantu) Course Vital Signs 07/22/23 12:57 Temperature 97.4 F L Pulse Rate 85 Respiratory 16 Rate Blood Pressure 157/99 O2 Sat by Pulse 100 Oximetry EKG Findings - EKG Results: EKG: interpreted by ERMD, sinus rhythm, normal axis, normal QRS, normal ST/T <Ky Cota - Last Filed: 07/22/23 15:51> Medical Decision Making <Victor Manuel Cantu - Last Filed: 07/22/23 12:57> - Lab Data Result diagrams: 07/22/23 13:47 07/22/23 13:47 <Ky Cota - Last Filed: 07/22/23 15:51> - Medical Decision Making I performed a quick note portion of this chart signed Victor Manuel BRIGGS (Victor Manuel Cantu) Was pt. sent in by a medical professional or institution (HOLLIE Rothman, ARCHITECTURAL DRAFTING INSTRUCTOR, urgent care, hospital, or assisted...) When possible be specific @ -No Did you speak to anyone other than the patient for history (EMS, parent, family, police, friend...)? What history was obtained from this source @ -No Did you review nursing and triage notes (agree or disagree)? Why? @ -I reviewed and agree with nursing and triage notes Were old charts reviewed (outside hosp., previous admission, EMS record, old EKG, old radiological studies, urgent care reports/EKG's, assisted records)? Report findings @ -No old charts were reviewed Differential Diagnosis (chest pain, altered mental status, abdominal pain women, abdominal pain men, vaginal bleeding, weakness, fever, dyspnea, syncope, headache, dizziness, GI bleed, back pain, seizure, CVA, palpatations, mental health, musculoskeletal)? @ -Differential Dizziness: Benign paroxysmal positional Vertigo, Menieres disease, otitis media, acoustic neuroma, vertebrobasilar insufficiency, cerebellar stroke, encephalitis, hypovolemic, arrhythmia, coronary artery syndrome, anemia, this is not meant to be an all-inclusive list EKG interpreted by me (3pts min.). @ -As above X-rays interpreted by me (1pt min.). @ -None done CT interpreted by me (1pt min.). @ -None done U/S interpreted by me (1pt. min.). @ -None done What testing was considered but not performed or refused? (CT, X-rays, U/S, labs)? Why? @ -None What meds were considered but not given or refused? Why? @ -None Did you discuss the management of the patient with other professionals (professionals i.e. , PA, ARCHITECTURAL DRAFTING INSTRUCTOR, lab, RT, psych nurse, social sciences professor, indian trader, teacher, control officer, case specialist)? Give summary @ -No Was smoking cessation discussed for >3mins.? @ -No Was critical care preformed (if so, how long)? @ -No Were there social determinants of health that impacted care today? How? (Homelessness, low income, unemployed, alcoholism, drug addiction, transportation, low edu. Level, literacy, decrease access to med. care, custodial, rehab)? @ -No Was there de-escalation of care discussed even if they declined (Discuss DNR or withdrawal of care, Hospice)? DNR status @ -No What co-morbidities impacted this encounter? (DM, HTN, Smoking, COPD, CAD, Cancer, CVA, ARF, Chemo, Hep., AIDS, mental health diagnosis, sleep apnea, morbid obesity)? @ -None Was patient admitted / discharged? Hospital course, mention meds given and route, prescriptions, significant lab abnormalities, going to OR and other pertinent info. @ -Patient resides with lightheadedness and paresthesias. Magnesium is low and this will be replaced. Patient also prescribed a U prescription. Patient states she does feel better with fluids. Patient is comfortable with discharge home and agreeable to follow-up. ndiagnosed new problem with uncertain prognosis? @ -[N] rug Therapy requiring intensive monitoring for toxicity (Heparin, Nitro, Insulin, Cardizem)? @ -[N] ere any procedures done? @ -[N] iagnosis/symptom? @ -[dParesthesias, lightheadedness, hypomagnesemiacute, or Chronic, or Acute on Chronic? @ -[dAcute, acute, acute ncomplicated (without systemic symptoms) or Complicated (systemic symptoms)? @ -[dfault] ernie effects of treatment? @ -[N] xacerbation, Progression, or Severe Exacerbation? @ -[N] oses a threat to life or bodily function? How? (Chest pain, USA, HI, pneumonia, PE, COPD, DKA, ARF, appy, cholecystitis, CVA, Diverticulitis, Homicidal, Suicidal, threat to staff... and all critical care pts) @ -[N] (Ky Cota) - Lab Data Lab Results 07/22/23 07/22/23 07/22/23 Range/Units 13:47 13:47 13:47 WBC 8.1 (3.8-10.6) k/uL RBC 4.50 (3.80-5.40) m/uL Hgb 14.2 (11.4-16.0) gm/dL Hct 41.1 (34.0-46.0) % MCV 91.3 (80.0-100.0) fL MCH 31.5 (25.0-35.0) pg MCHC 34.5 (31.0-37.0) g/dL RDW 12.9 (11.5-15.5) % Plt Count 329 (150-450) k/uL MPV 7.0 Neutrophils % 56 % Lymphocytes % 37 % Monocytes % 4 % Eosinophils % 2 % Basophils % 0 % Neutrophils # 4.5 (1.3-7.7) k/uL Lymphocytes # 3.0 (1.0-4.8) k/uL Monocytes # 0.3 (0-1.0) k/uL Eosinophils # 0.1 (0-0.7) k/uL Basophils # 0.0 (0-0.2) k/uL Sodium 139 (137-145) mmol/L Potassium 4.4 (3.5-5.1) mmol/L Chloride 103 (98-107) mmol/L Carbon Dioxide 22 (22-30) mmol/L Anion Gap 14 mmol/L BUN 17 (7-17) mg/dL Creatinine 0.62 (0.52-1.04) mg/dL Est GFR (CKD-EPI)AfAm >90 (>60 ml/min/1.73 sqM) Est GFR (CKD-EPI)NonAf >90 (>60 ml/min/1.73 sqM) Glucose 98 (74-99) mg/dL Calcium 9.8 (8.4-10.2) mg/dL Magnesium 1.2 L (1.6-2.3) mg/dL Total Bilirubin 0.8 (0.2-1.3) mg/dL AST 21 (14-36) U/L ALT 24 (4-34) U/L Alkaline Phosphatase 47 (38-126) U/L Troponin I <0.012 (0.000-0.034) ng/mL Total Protein 8.0 (6.3-8.2) g/dL Albumin 4.7 (3.5-5.0) g/dL Disposition <Victor Manuel Cantu - Last Filed: 07/22/23 12:57> Is patient prescribed a controlled substance at d/c from ED?: No Time of Disposition: 15:51 <Ky Cota - Last Filed: 07/22/23 15:51> Clinical Impression: Hypomagnesemia, Lightheadedness, Paresthesias Disposition: HOME SELF-CARE Condition: Stable Instructions (If sedation given, give patient instructions): Dizziness (ED), Hypomagnesemia (ED) Additional Instructions: Prescription sent to pharmacy. Please do follow-up with your primary care physician in the next couple days for recheck. Return for increased lighthead edness or passing out, weakness, worsening symptoms or any other concern. You will need to have your magnesium level rechecked in the next few days. Prescriptions: Magnesium Oxide [Mag-Ox] 400 mg PO BID #8 tablet Referrals: Tami Tamez DO [Primary Care Provider] - 1-2 days
[2023-07-22] MEDS ORDERED: LORazepam 2 MG/ML INJ IV STA (14:57)
[2023-07-22] MEDS ORDERED: SODIUM CHLORIDE 0.9% 1,000 ML IV STA (14:57)
[2023-07-22 15:08] LABS: Basophils % (A) 0 %; Eosinophils # (A) 0.1 k/uL (0-0.7); Eosinophils % (A) 2 %; HCT 41.1 % (34.0-46.0); HGB 14.2 gm/dL (11.4-16.0); Lymphocytes % (A) 37 %; MCH 31.5 pg (25.0-35.0); MCHC 34.5 g/dL (31.0-37.0); MCV 91.3 fL (80.0-100.0); Monocytes # (A) 0.3 k/uL (0-1.0); Monocytes % (A) 4 %; Neutrophils # (A) 4.5 k/uL (1.3-7.7); Neutrophils % (A) 56 %; Platelet Count 329 k/uL (150-450); RDW 12.9 % (11.5-15.5); WBC 8.1 k/uL (3.8-10.6)
[2023-07-22 15:17] LABS: ALT 24 U/L (4-34); AST 21 U/L (14-36); African American GFR (CKD) >90 (>60 ml/min/1.73 sqM); Albumin 4.7 g/dL (3.5-5.0); Alkaline Phosphatase 47 U/L (38-126); Anion Gap 14 mmol/L; Blood Urea Nitrogen 17 mg/dL (7-17); Calcium 9.8 mg/dL (8.4-10.2); Carbon Dioxide 22 mmol/L (22-30); Chloride 103 mmol/L (98-107); Glucose 98 mg/dL (74-99); Magnesium 1.2 mg/dL (1.6-2.3); Non-African American GFR(CKD) >90 (>60 ml/min/1.73 sqM); Potassium 4.4 mmol/L (3.5-5.1); Sodium 139 mmol/L (137-145); Total Bilirubin 0.8 mg/dL (0.2-1.3)
[2023-07-22] MEDS ORDERED: MAGNESIUM OXIDE 400 MG TAB PO STA (15:39)
[2023-07-22] MEDS ORDERED: MAGNESIUM SULFATE-D5W PMX 1 GM in DEXTROSE/WATER 1 100ML.BAG IVPB ONE (15:39)
[2023-07-22 19:35] VITALS: BP 145/85; PULSE 90; RESP 18; TEMP 97.9
== END 2023-07-22 17:30 | disposition home or self-care (01) ==
LOC: EC 12:23
DX: E83.42 Hypomagnesemia (principal); R42 Dizziness and giddiness; R20.2 Paresthesia of skin; E11.9 Type 2 diabetes mellitus without complications; I10 Essential (primary) hypertension; Z79.84 Long term (current) use of oral hypoglycemic drugs; Z79.899 Other long term (current) drug therapy; Z88.5 Allergy status to narcotic agent; Z88.8 Allergy status to other drugs, medicaments and biological substances
CPT/HCPCS: 36415; 93005; 80053; 83735; 84484; 85025; 99284; 96365; 96375; 96361; J2060; J3475

== ENCOUNTER → 2023-12-25 | Outpatient (CLI) | payer BC ==
--- NOTE | 2023-12-29 11:51 | MM ---
Reason for Exam: Screening (asymptomatic). Last mammogram was performed 1 year(s) and 5 month(s) ago. Patient History: Menarche at age 11. First Full-Term at age 20. Hysterectomy at age 36. Patient has history of breast feeding. Patient used Hormonal Contraceptives for 10 years. Risk Values: Michelle 5 year model risk: 0.7%. NCI Lifetime model risk: 8.7%. Prior Study Comparison: 05/31/2020 Bilateral Screening Mammogram, [facility]. 07/08/2022 Bilateral MG 3D screening mammo w/cad, [facility]. Tissue Density: There are scattered areas of fibroglandular density. Findings: Analyzed By CAD. Right breast: There is no suspicious group of microcalcifications or new suspicious mass. Benign-appearing calcifications right breast. Left breast: There is no suspicious group of microcalcifications or new suspicious mass. Benign-appearing calcifications left breast. Overall Assessment: Benign, BI-RAD 2 Management: Screening Mammogram of both breasts in [address] [facility] will attempt to contact patient to return for supplemental views and ultrasound if indicated. Patient should continue monthly self-breast exams. A clinical breast exam by your physician is recommended on an annual basis. This exam should not preclude additional follow-up of suspicious palpable abnormalities. Note on Michelle scores and lifetime risk: 1. A Michelle score greater than 3% is considered moderate risk. If this is the case, consider specialist referral to assess eligibility for a risk reducing agent. 2. If overall lifetime risk for the development of breast cancer is 20% or higher, the patient may qualify for future screening with alternating mammogram and breast MRI. Electronically signed and approved by: Bolivar Huitron DO
== END | disposition home or self-care (01) ==
LOC: RADMAMWWP 14:21
PROVIDERS: ATTEND Family Medicine
DX: Z12.31 Encounter for screening mammogram for malignant neoplasm of breast (principal); Z92.0 Personal history of contraception
CPT/HCPCS: 77063; 77067

== ENCOUNTER → 2025-01-07 | Outpatient (CLI) | payer BC ==
--- NOTE | 2025-01-10 07:26 | MM ---
Reason for Exam: Screening (asymptomatic). Last mammogram was performed 1 year(s) and 1 month(s) ago. Patient History: Menarche at age 11. First Full-Term at age 20. Hysterectomy at age 36. Patient has history of breast feeding. Patient used Hormonal Contraceptives for 10 years. Risk Values: Michelle 5 year model risk: 0.7%. NCI Lifetime model risk: 8.6%. Prior Study Comparison: 05/31/2020 Bilateral Screening Mammogram, [facility]. 07/08/2022 Bilateral MG 3D screening mammo w/cad, [facility]. 12/25/2023 Bilateral MG 3D screening mammo w/cad, [facility]. Tissue Density: The breasts are heterogeneously dense, which may obscure small masses. Findings: Analyzed By CAD. Benign-appearing vascular calcifications in the bilateral breasts is present. There is no suspicious group of microcalcifications or new suspicious mass in either breast. Overall Assessment: Negative, BI-RAD 1 Management: Screening Mammogram of both breasts in 1 year. . Patient should continue monthly self-breast exams. A clinical breast exam by your physician is recommended on an annual basis. This exam should not preclude additional follow-up of suspicious palpable abnormalities. Note on Michelle scores and lifetime risk: 1. A Michelle score greater than 3% is considered moderate risk. If this is the case, consider specialist referral to assess eligibility for a risk reducing agent. 2. If overall lifetime risk for the development of breast cancer is 20% or higher, the patient may qualify for future screening with alternating mammogram and breast MRI. [facility], , 01/10/2025 7:23 AM. Electronically signed and approved by: Link Fung M.D.
== END | disposition home or self-care (01) ==
LOC: RADMAMWWP 16:42
PROVIDERS: ATTEND Family Medicine
DX: Z12.31 Encounter for screening mammogram for malignant neoplasm of breast (principal); R92.333 Mammographic heterogeneous density, bilateral breasts; R92.1 Mammographic calcification found on diagnostic imaging of breast; Z92.0 Personal history of contraception
CPT/HCPCS: 77063; 77067

== ENCOUNTER 2025-02-11 09:14 | Day surgery (SDC) | payer BC ==
[2025-02-09 14:03] VITALS: BMI 39.0
[~2025-02-11 09:14] MED LIST: LIDOCAINE 1% (10MG/ML) FOR IV START INTRADERMA PRN
[2025-02-11 09:49] VITALS: TEMP 97.6
[2025-02-11 09:57] LABS: Glucose,Whole Blood 146 mg/dL (70-110)
[2025-02-11] MEDS: LACTATED RINGERS 1,000 ML IV SCH (10:00)
[2025-02-11] MEDS: IV FLUID CONTINUATION 1,000 ML IV ONE (10:01)
[2025-02-11] MEDS ORDERED: PROPOFOL 10 MG/ML 20 ML VIAL IV ONE (10:39)
[2025-02-11] MEDS ORDERED: LIDOCAINE 2% (PF) 20 MG/ML 5 ML VIAL ONE (10:39)
--- NOTE | 2025-02-11 10:59 | P.PCN ---
Date of Procedure: 02/11/25 Procedure(s) Performed: BRIEF HISTORY: Patient is a 44-year-old pleasant white female scheduled for an elective colonoscopy as a part of screening for colon cancer. PROCEDURE PERFORMED: Colonoscopy. PREOPERATIVE DIAGNOSIS: Screening for colon cancer. IV sedation per Anesthesia. PROCEDURE: After informed consent was obtained, the patient, was brought into the endoscopy unit. IV sedation was administered by Anesthesia under continuous monitoring. Digital rectal examination was normal. Initially the Olympus CF-160 flexible video colonoscope was then inserted in the rectum, gradually advanced into the cecum without any difficulty. Careful examination was performed as the scope was gradually being withdrawn. Ileocecal valve and the appendiceal orifice were visualized and appeared normal. Prep was excellent. Mucosa of the cecum, ascending colon, transverse colon, descending colon, sigmoid colon, and rectum appeared normal. Retroflexion was performed in the rectum and no lesions were seen. The patient tolerated the procedure well. IMPRESSION: Normal-appearing colon from rectum to cecum with no evidence of colorectal neoplasia. RECOMMENDATIONS: Findings of this examination were discussed with the patient as well as her family. She was advised to have repeat screening colonoscopy in 10 years.
[2025-02-11 11:08] LABS: Glucose,Whole Blood 127 mg/dL (70-110)
[2025-02-11 11:25] VITALS: RESP 16
[2025-02-11 11:28] VITALS: BP 131/83; PULSE 76
== END 2025-02-11 11:50 | disposition home or self-care (01) ==
LOC: ORWHC2ENDO 09:14
PROVIDERS: ATTEND Internal Medicine Gastroenterology
DX: Z12.11 Encounter for screening for malignant neoplasm of colon (principal); I10 Essential (primary) hypertension; E78.5 Hyperlipidemia, unspecified; M79.7 Fibromyalgia; E11.9 Type 2 diabetes mellitus without complications; Z79.899 Other long term (current) drug therapy; Z79.85 Long-term (current) use of injectable non-insulin antidiabetic drugs; Z79.84 Long term (current) use of oral hypoglycemic drugs; Z88.5 Allergy status to narcotic agent; Z88.8 Allergy status to other drugs, medicaments and biological substances
CPT/HCPCS: 45378; J2704; J2003

== ENCOUNTER 2025-02-24 09:25 | Emergency (ER) | payer BC ==
[2025-02-24 09:42] VITALS: RESP 18
[2025-02-24 09:43] VITALS: TEMP 98.4
[2025-02-24 10:42] LABS: Basophils # (A) 0.04 10*3/uL (0.00-0.10); Basophils % (A) 0.5 %; Eosinophils # (A) 0.07 10*3/uL (0.04-0.35); Eosinophils % (A) 0.9 %; HCT 39.8 % (37.2-46.3); HGB 13.9 g/dL (12.0-15.0); Lymphocytes # (A) 1.91 10*3/uL (0.90-5.00); Lymphocytes % (A) 23.7 %; MCH 31.5 pg (27.0-32.0); MCHC 34.9 g/dL (32.0-37.0); MCV 90.2 fL (80.0-97.0); Mean Platelet Volume 8.8 fL (9.5-12.2); Monocytes # (A) 0.41 10*3/uL (0.20-1.00); Monocytes % (A) 5.1 %; Neutrophils # (A) 5.58 10*3/uL (1.80-7.70); Neutrophils % (A) 69.3 %; Platelet Count 358 10*3/uL (140-440); RBC 4.41 10*6/uL (4.10-5.20); RDW 12.2 % (11.5-14.5); WBC 8.05 10*3/uL (4.50-10.00)
[2025-02-24 10:52] LABS: ALT 32 U/L (4-34); AST 23 U/L (14-36); African American GFR (CKD) >90 (>60 ml/min/1.73 sqM); Albumin 4.6 g/dL (3.5-5.0); Alkaline Phosphatase 68 U/L (38-126); Amylase 48 U/L (30-110); Anion Gap 12 mmol/L; Blood Urea Nitrogen 17 mg/dL (7-17); Calcium 9.7 mg/dL (8.4-10.2); Carbon Dioxide 22 mmol/L (22-30); Chloride 104 mmol/L (98-107); Glucose 161 mg/dL (74-99); Lipase 224 U/L (23-300); Non-African American GFR(CKD) >90 (>60 ml/min/1.73 sqM); Potassium 4.2 mmol/L (3.5-5.1); Sodium 138 mmol/L (137-145); Total Bilirubin 0.9 mg/dL (0.2-1.3); Total Protein 7.7 g/dL (6.3-8.2)
--- NOTE | 2025-02-24 11:04 | ED ---
Abdominal Pain HPI - General Chief Complaint: Abdominal Pain Stated Complaint: Lower back and stomach pain Time Seen by Provider: 02/24/25 09:35 Source: patient, RN notes reviewed Mode of arrival: ambulatory Limitations: no limitations - History of Present Illness Initial Comments: 44-year-old female presents emergency department complaint of abdominal pain, back pain. Patient states since wraparound her back to her front. Patient states she feels very bloated distended. Patient's had no symptom change in bowel habits no dysuria no hematuria she had a prior hysterectomy and cholecystectomy. States she had a colonoscopy recently with no acute findings. She denies fevers chills chest pain or shortness of breath. - Related Data Home Medications Medication Instructions Recorded Confirmed lisinopriL [Zestril] 10 mg PO DAILY 05/15/18 02/11/25 Atorvastatin [Lipitor] 10 mg PO DAILY 02/09/25 02/11/25 DULoxetine HCL [Cymbalta] 30 mg PO DAILY 02/09/25 02/11/25 Tirzepatide [Mounjaro] 15 mg SQ BASILIO 02/09/25 02/09/25 metFORMIN HCL [Glucophage] 500 mg PO BID 02/09/25 02/11/25 Previous Rx's Medication Instructions Recorded Dicyclomine [Bentyl] 20 mg PO TID #30 tablet 02/24/25 Omeprazole [PriLOSEC] 40 mg PO DAILY #14 cap 02/24/25 Allergies Allergy/AdvReac Type Severity Reaction Status Date / Time codeine AdvReac Nausea & Verified 02/24/25 09:39 Vomiting dapagliflozin [From Farxiga] AdvReac UTI Verified 02/24/25 09:39 Review of Systems ROS Statement: Those systems with pertinent positive or pertinent negative responses have been documented in the HPI. ROS Other: All systems not noted in ROS Statement are negative. Past Medical History Past Medical History: Cancer, Diabetes Mellitus, Hypertension Additional Past Medical History / Comment(s): hx "stage 1" cervical cancer History of Any Multi-Drug Resistant Organisms: None Reported Past Surgical History: Section, Cholecystectomy, Hysterectomy Additional Past Surgical History / Comment(s): leep procedure Past Anesthesia/Blood Transfusion Reactions: Motion Sickness Past Psychological History: No Psychological Hx Reported Smoking Status: Never smoker Past Alcohol Use History: None Reported Past Drug Use History: None Reported - Past Family History Mother Family Medical History: No Reported History General Exam Limitations: no limitations General appearance: alert, in no apparent distress Head exam: Present: atraumatic, normocephalic, normal inspection Eye exam: Present: normal appearance, PERRL, EOMI. Absent: scleral icterus, conjunctival injection, periorbital swelling ENT exam: Present: normal exam, normal oropharynx, mucous membranes moist Neck exam: Present: normal inspection, full ROM. Absent: tenderness, meningismus, lymphadenopathy Respiratory exam: Present: normal lung sounds bilaterally. Absent: respiratory distress, wheezes, rales, rhonchi, stridor Cardiovascular Exam: Present: regular rate, normal rhythm, normal heart sounds. Absent: systolic murmur, diastolic murmur, rubs, gallop, clicks GI/Abdominal exam: Present: soft, tenderness, normal bowel sounds. Absent: distended, guarding, rebound, rigid Course Vital Signs 02/24/25 02/24/25 09:39 13:51 Temperature 98.4 F Pulse Rate 103 H 72 Respiratory 18 18 Rate Blood Pressure 135/86 117/85 O2 Sat by Pulse 99 66 L Oximetry Medical Decision Making - Medical Decision Making Was pt. sent in by a medical professional or institution (, PA, KILN [employer]EDER, urgent care, hospital, or custodial...) When possible be specific @ -No Did you speak to anyone other than the patient for history (EMS, parent, family, police, friend...)? What history was obtained from this source @ -No Did you review nursing and triage notes (agree or disagree)? Why? @ -I reviewed and agree with nursing and triage notes Were old charts reviewed (outside hosp., previous admission, EMS record, old EKG, old radiological studies, urgent care reports/EKG's, custodial records)? Report findings @ -No old charts were reviewed Differential Diagnosis (chest pain, altered mental status, abdominal pain women, abdominal pain men, vaginal bleeding, weakness, fever, dyspnea, syncope, headache, dizziness, GI bleed, back pain, seizure, CVA, palpatations, mental health, musculoskeletal)? @ -Differential Abdominal Pain Women: Appendicitis, Cholecystitis, diverticulosis, ischemic bowel, pancreatitis, hepatitis, UTI, gastroenteritis, AAA, incarcerated hernia, bowel obstruction, constipation, inflammatory bowel, hepatitis, peptic ulcer disease, splenic infarction, perforated viscus, vulvitis, ovarian torsion, PID, kidney stone, placenta abruption, this is not meant to be an all-inclusive list EKG interpreted by me (3pts min.). @ -None X-rays interpreted by me (1pt min.). @ -None done CT interpreted by me (1pt min.). @ -CT abdomen pelvis showing no acute intra-abdominal processno obstructing perforation or active infection U/S interpreted by me (1pt. min.). @ -None done What testing was considered but not performed or refused? (CT, X-rays, U/S, labs)? Why? @ -None What meds were considered but not given or refused? Why? @ -None Did you discuss the management of the patient with other professionals (professionals i.e. , PA, KIL[employer]EDER, lab, RT, psych nurse, health and social care teacher, spray mixer, teacher, fire prevention officer, case finishing machine adjuster)? Give summary @ -No Was smoking cessation discussed for >3mins.? @ -No Was critical care preformed (if so, how long)? @ -No Were there social determinants of health that impacted care today? How? (Homelessness, low income, unemployed, alcoholism, drug addiction, transportation, low edu. Level, literacy, decrease access to med. care, senior care, rehab)? @ -No Was there de-escalation of care discussed even if they declined (Discuss DNR or withdrawal of care, Hospice)? DNR status @ -No What co-morbidities impacted this encounter? (DM, HTN, Smoking, COPD, CAD, Cancer, CVA, ARF, Chemo, Hep., AIDS, mental health diagnosis, sleep apnea, morbid obesity)? @ -None Was patient admitted / discharged? Hospital course, mention meds given and route, prescriptions, significant lab abnormalities, going to OR and other pertinent info. @ -Discharge patient laboratory studies, CT unremarkable patient recent colonoscopy was unremarkable. Patient feels improved will be discharged in stable condition. Undiagnosed new problem with uncertain prognosis? @ -No Drug Therapy requiring intensive monitoring for toxicity (Heparin, Nitro, Ins ulin, Cardizem)? @ -No Were any procedures done? @ -No Diagnosis/symptom? @ -Abdominal pain Acute, or Chronic, or Acute on Chronic? @ -Acute Uncomplicated (without systemic symptoms) or Complicated (systemic symptoms)? @ - complicated Side effects of treatment? @ -No Exacerbation, Progression, or Severe Exacerbation? @ -No Poses a threat to life or bodily function? How? (Chest pain, USA, MA, pneumonia, PE, COPD, DKA, ARF, appy, cholecystitis, CVA, Diverticulitis, Homicidal, Suicidal, threat to staff... and all critical care pts) @ -No - Lab Data Result diagrams: 02/24/25 10:02/24/25 10: Lab Results 02/24/25 02/24/25 02/24/25 Range/Units 10: 10: 10: WBC 8.05 (4.50-10.00) 10*3/uL RBC 4.41 (4.10-5.20) 10*6/uL Hgb 13.9 (12.0-15.0) g/dL Hct 39.8 (37.2-46.3) % MCV 90.2 (80.0-97.0) fL MCH 31.5 (27.0-32.0) pg MCHC 34.9 (32.0-37.0) g/dL Plt Count 358 (140-440) 10*3/uL MPV 8.8 L (9.5-12.2) fL Immature Gran % (Auto) 0.5 % Neutrophils % 69.3 % Lymphocytes % 23.7 % Monocytes % 5.1 % Eosinophils % 0.9 % Basophils % 0.5 % Immature Gran # 0.04 (0.00-0.04) 10*3/uL Neutrophils # 5.58 (1.80-7.70) 10*3/uL Lymphocytes # 1.91 (0.90-5.00) 10*3/uL Monocytes # 0.41 (0.20-1.00) 10*3/uL Eosinophils # 0.07 (0.04-0.35) 10*3/uL Basophils # 0.04 (0.00-0.10) 10*3/uL Sodium 138 (137-145) mmol/L Potassium 4.2 (3.5-5.1) mmol/L Chloride 104 (98-107) mmol/L Carbon Dioxide 22 (22-30) mmol/L Anion Gap 12 mmol/L BUN 17 (7-17) mg/dL Creatinine 0.72 (0.52-1.04) mg/dL Est GFR (CKD-EPI)AfAm >90 (>60 ml/min/1.73 sqM) Est GFR (CKD-EPI)NonAf >90 (>60 ml/min/1.73 sqM) Glucose 161 H (74-99) mg/dL Plasma Lactic Acid Kartik (0.7-2.0) mmol/L Calcium 9.7 (8.4-10.2) mg/dL Total Bilirubin 0.9 (0.2-1.3) mg/dL AST 23 (14-36) U/L ALT 32 (4-34) U/L Alkaline Phosphatase 68 (38-126) U/L Total Protein 7.7 (6.3-8.2) g/dL Albumin 4.6 (3.5-5.0) g/dL Amylase 48 (30-110) U/L Lipase 224 (23-300) U/L Urine Color Yellow Urine Appearance Clear (Clear) Urine pH 5.0 (5.0-8.0) Ur Specific [place] 1.022 (1.001-1.035) Urine Protein Trace H (Negative) Urine Glucose (UA) Negative (Negative) Urine Ketones Negative (Negative) Urine Blood Negative (Negative) Urine Nitrite Negative (Negative) Urine Bilirubin Negative (Negative) Urine Urobilinogen <2.0 (<2.0) mg/dL Ur Leukocyte Esterase Negative (Negative) 02/24/25 Range/Units 10:29 WBC (4.50-10.00) 10*3/uL RBC (4.10-5.20) 10*6/uL Hgb (12.0-15.0) g/dL Hct (37.2-46.3) % MCV (80.0-97.0) fL MCH (27.0-32.0) pg MCHC (32.0-37.0) g/dL Plt Count (140-440) 10*3/uL MPV (9.5-12.2) fL Immature Gran % (Auto) % Neutrophils % % Lymphocytes % % Monocytes % % Eosinophils % % Basophils % % Immature Gran # (0.00-0.04) 10*3/uL Neutrophils # (1.80-7.70) 10*3/uL Lymphocytes # (0.90-5.00) 10*3/uL Monocytes # (0.20-1.00) 10*3/uL Eosinophils # (0.04-0.35) 10*3/uL Basophils # (0.00-0.10) 10*3/uL Sodium (137-145) mmol/L Potassium (3.5-5.1) mmol/L Chloride (98-107) mmol/L Carbon Dioxide (22-30) mmol/L Anion Gap mmol/L BUN (7-17) mg/dL Creatinine (0.52-1.04) mg/dL Est GFR (CKD-EPI)AfAm (>60 ml/min/1.73 sqM) Est GFR (CKD-EPI)NonAf (>60 ml/min/1.73 sqM) Glucose (74-99) mg/dL Plasma Lactic Acid Kartik 1.6 (0.7-2.0) mmol/L Calcium (8.4-10.2) mg/dL Total Bilirubin (0.2-1.3) mg/dL AST (14-36) U/L ALT (4-34) U/L Alkaline Phosphatase (38-126) U/L Total Protein (6.3-8.2) g/dL Albumin (3.5-5.0) g/dL Amylase (30-110) U/L Lipase (23-300) U/L Urine Color Urine Appearance (Clear) Urine pH (5.0-8.0) Ur Specific [place] (1.001-1.035) Urine Protein (Negative) Urine Glucose (UA) (Negative) Urine Ketones (Negative) Urine Blood (Negative) Urine Nitrite (Negative) Urine Bilirubin (Negative) Urine Urobilinogen (<2.0) mg/dL Ur Leukocyte Esterase (Negative) Disposition Clinical Impression: Abdominal pain Disposition: HOME SELF-CARE Condition: Stable Instructions (If sedation given, give patient instructions): Abdominal Pain (ED) Additional Instructions: Please return to the Emergency Department if symptoms worsen or any other concerns. Prescriptions: Dicyclomine [Bentyl] 20 mg PO TID #30 tablet Omeprazole [PriLOSEC] 40 mg PO DAILY #14 cap Is patient prescribed a controlled substance at d/c from ED?: No Referrals: Tami Tamez DO [Primary Care Provider] - 1-2 days Time of Disposition: 13:33
[2025-02-24 11:09] LABS: Appearance,Urine Clear (Clear); Bilirubin,Urine Negative (Negative); Blood,Urine Negative (Negative); Color,Urine Yellow; Glucose,Urine (UA) Negative (Negative); Ketones,Urine Negative (Negative); Leukocyte Esterase,Urine Negative (Negative); Nitrite,Urine Negative (Negative); Protein,Urine Trace (Negative); Specific Gravity,Urine 1.022 (1.001-1.035); Urobilinogen,Urine <2.0 mg/dL (<2.0)
--- NOTE | 2025-02-24 11:27 | CT ---
EXAMINATION TYPE: CT abdomen pelvis w con DATE OF EXAM: 02/24/2025 11:17 AM COMPARISON: None. CLINICAL INDICATION: Female, 44 years old with history of abdominal pain, Abdominal pain TECHNIQUE: Axial images were obtained from above the diaphragm to the pubic rami in the axial plane a t 5 mm thick sections. Reconstructed images are reviewed on the computer in the coronal plane. CONTRAST: 100 ml mL of Isovue 300. Study performed without Oral Contrast DLP: 1207.3 mGycm, Automated exposure control for dose reduction was used. FINDINGS: Limited CT sections are obtained the lung bases. The lung bases are clear. CT ABDOMEN: Liver: Normal Spleen: Normal Pancreas: Normal Adrenal glands: The adrenal glands are normal. Gallbladder: Not identified. Correlate with surgical history. Kidneys: No masses are evident. No hydronephrosis is present. No cysts are present. Delayed images were obtained through the kidneys, which remain unremarkable. Aorta: Normal Inferior vena cava: Normal. CT PELVIS: Loops of bowel within the abdomen and pelvis are normal. This study is without oral contrast limi ting evaluation. Appendix: Normal as visualized. Urinary bladder: Normal. Genitourinary structures: Uterus and ovaries are not identified Osseous structures: No suspicious lytic or sclerotic lesions. IMPRESSION: 1. No suspicious abnormality to account for abdominal pain. Follow-up as clinically indicated [facility], , 02/24/2025 11:25 AM
[2025-02-24] MEDS: KETOROLAC 15 MG/ML 1 ML VIAL IVP STA (12:46)
[2025-02-24] MEDS: FAMOTIDINE 20 MG/2 ML VIAL IV STA (12:49)
[2025-02-24] MEDS: ONDANSETRON 4 MG/2 ML VIAL IVP STA (13:41)
[2025-02-24] MEDS: HYDROmorphone 0.5 MG/0.5 ML SYRINGE IVP STA (13:42)
[2025-02-24] MEDS: traMADol 50 MG STARTER PACK 3 TAB BTL PO STA (13:43)
[2025-02-24 13:52] VITALS: BP 117/85; PULSE 72
== END 2025-02-24 13:52 | disposition home or self-care (01) ==
LOC: EC 09:25
DX: R10.9 Unspecified abdominal pain (principal); Z88.5 Allergy status to narcotic agent; Z88.8 Allergy status to other drugs, medicaments and biological substances
CPT/HCPCS: 36415; 80053; 82150; 83605; 83690; 85025; 81003; 74177; 99284; 96374; 96375; J2405; J1885; J1171; Q9967; J1308